=== PATIENT | female | born 1965 | race African-American/Black ===

== ENCOUNTER 2019-02-24 17:28 | Emergency (ER) | payer MEDICARE, MEDICAID ==
[~2019-02-24] VITALS: Ht 165.1 cm; Wt 72.6 kg
--- NOTE | 2019-02-24 17:30 | NUR ---
ED Nurse Note: Patient was brought in by ambulance from [facility], patient is Dr. Partha Smiley's patient, Dr. Doll on the case, her recent blood work at her pmd was abnormal, patient is here to get bone biopsy. patient is alert awake x2 ambulatory with assistance, breathing unlabored and even, speaking in full sentences, patient is derilious and confused, stating that "I'm getting attacked by satan in a horror film." Dr. Hood at bedside.
[2019-02-24] MEDS ORDERED: RISPERDAL2 MG ORAL (17:41)
[2019-02-24] MEDS ORDERED: DEPAKOTE ER500 MG ORAL (17:41)
[2019-02-24] MEDS ORDERED: FERROUS SULFAT325 MG ORAL (17:41)
[2019-02-24] MEDS ORDERED: KEPPRA750 MG ORAL (17:41)
--- NOTE | 2019-02-24 17:41 | Emergency Room Report ---
History of Present Illness General Chief Complaint: General Complaint Source: Patient Present Illness HPI Disclaimer: Please note that this report is being documented using SnowshoefoodON technology. This can lead to erroneous entry secondary to incorrect interpretation by the dictating instrument. HPI: 53-year-old female with a history of schizophrenia (reported baseline AO x1 ) sent to the emergency department by oncologist Dr. Doll for admission bone marrow biopsy. The patient is currently being worked up between multiple myeloma and MGUS. She cannot provide any medical history. She is oriented to herself and place. She denies any acute complaints at this time. Her thoughts are extremely tangential and cannot hold a conversation regarding her past or current medical history. PMH: Schizophrenia PSH: Unknown Allergies: Unknown Social Hx: Unknown Allergies: Coded Allergies: No Known Allergies (Unverified , 02/24/19) Nursing Documentation-PMH Hx COPD: Yes Hx Gastrointestinal Problems: Yes - GERD History Of Psychiatric Problem: Yes - depression schizophrenia Hx Seizures: Yes Review of Systems All Other Systems: limited - Unable to obtain due to patient's clinical condition Physical Exam Vital Signs Date Time Temp Pulse Resp B/P (MAP) Pulse Ox O2 Delivery O2 Flow Rate FiO2 02/24/19 17:24 98.1 80 18 117/69 (85) 94 Room Air General: Awake and alert, no acute distress, pleasant HEENT: NC/AT. EOMI. pupils are 6 mm and reactive bilaterally. Moist mucous membranes. Cardiovascular: RRR. S1 and S2 normal. No murmur appreciated Resp: Normal work of breathing. No cough, wheezing or crackles appreciated Abdomen: Abdomen is soft, nondistended. Obese abdomen. Nontender Skin: Intact. No abrasions, laceration or rash over the exposed skin MSK: Normal tone and bulk. Moving all extremities. No obvious deformity. Neuro: Awake and alert. Mentating appropriately. Medical Decision Making Diagnostic Impression: Primary Impression: Routine lab draw Additional Impression: Routine general medical examination at health care facility ER Course 53-year-old female with history of schizophrenia currently undergoing evaluation for multiple myeloma versus MGUS presents for evaluation and medical admission in preparation for bone marrow biopsy. Will obtain screening labs and admit to medical service. She is in no acute distress, pleasant and cooperative. Arrives with vital signs within normal limits Laboratory Tests Test 02/24/19 17:45 White Blood Count 6.9 K/UL (4.8-10.8) Red Blood Count 3.70 M/UL (4.20-5.40) L Hemoglobin 10.9 G/DL (12.0-16.0) L Hematocrit 33.0 % (37.0-47.0) L Mean Corpuscular Volume 89 FL (80-99) Mean Corpuscular Hemoglobin 29.5 PG (27.0-31.0) Mean Corpuscular Hemoglobin Concent 33.1 G/DL (32.0-36.0) Red Cell Distribution Width 10.9 % (11.6-14.8) L Platelet Count 209 K/UL (150-450) Mean Platelet Volume 7.6 FL (6.5-10.1) Neutrophils (%) (Auto) 58.1 % (45.0-75.0) Lymphocytes (%) (Auto) 30.1 % (20.0-45.0) Monocytes (%) (Auto) 9.0 % (1.0-10.0) Eosinophils (%) (Auto) 1.8 % (0.0-3.0) Basophils (%) (Auto) 1.0 % (0.0-2.0) Prothrombin Time 10.0 SEC (9.30-11.50) Prothrombin Time INR 0.9 (0.9-1.1) PTT 24 SEC (23-33) Sodium Level 140 MMOL/L (136-145) Potassium Level 4.5 MMOL/L (3.5-5.1) Chloride Level 105 MMOL/L (98-107) Carbon Dioxide Level 28 MMOL/L (21-32) Anion Gap 7 mmol/L (5-15) Blood Urea Nitrogen 17 mg/dL (7-18) Creatinine 0.8 MG/DL (0.55-1.30) Estimate Glomerular Filtration Rate > 60 mL/min (>60) Glucose Level 103 MG/DL (74-106) Calcium Level 8.9 MG/DL (8.5-10.1) Phosphorus Level 3.7 MG/DL (2.5-4.9) Magnesium Level 1.8 MG/DL (1.8-2.4) Total Bilirubin 0.3 MG/DL (0.2-1.0) Aspartate Amino Transferase (AST) 11 U/L (15-37) L Alanine Aminotransferase (ALT) 14 U/L (12-78) Alkaline Phosphatase 67 U/L (46-116) Total Protein 8.0 G/DL (6.4-8.2) Albumin 3.2 G/DL (3.4-5.0) L Globulin 4.8 g/dL Albumin/Globulin Ratio 0.7 (1.0-2.7) L Reevaluation Time: 18:37 Last Vital Signs Date Time Temp Pulse Resp B/P (MAP) Pulse Ox O2 Delivery O2 Flow Rate FiO2 02/24/19 17:24 98.1 80 18 117/69 (85) 94 Room Air Reevaluation Impression Patient's blood work has returned largely within normal limits. Unfortunately, due to an insurance issue she will not be admitted to the hospital for biopsy today. I discussed with her oncologist, Dr. Doll, who agrees and will arrange outpatient follow-up shortly. She will be returned to her facility to follow-up as an outpatient. We will arrange transport for her to return to her nursing facility. Condition: Stable Jordon Hood MD Feb 24, 2019 17:41
[2019-02-24 17:55] VITALS: BP 114/61
[2019-02-24 18:02] LABS: EOSINOPHILS % (AUTO) 1.8 % (0.0-3.0); HEMOGLOBIN 10.9 G/DL (12.0-16.0); LYMPHOCYTES % (AUTO) 30.1 % (20.0-45.0); MEAN CORPUSCULAR VOLUME 89 FL (80-99); NEUTROPHILS % (AUTO) 58.1 % (45.0-75.0); PLATELET COUNT 209 K/UL (150-450); RED CELL DISTRIBUTION WIDTH 10.9 % (11.6-14.8); WHITE BLOOD COUNT 6.9 K/UL (4.8-10.8)
[2019-02-24 18:13] LABS: ANION GAP 7 mmol/L (5-15); BLOOD UREA NITROGEN 17 mg/dL (7-18); CALCIUM 8.9 MG/DL (8.5-10.1); CARBON DIOXIDE 28 MMOL/L (21-32); CHLORIDE 105 MMOL/L (98-107); CREATININE 0.8 MG/DL (0.55-1.30); INR 0.9 (0.9-1.1); POTASSIUM 4.5 MMOL/L (3.5-5.1); SODIUM 140 MMOL/L (136-145)
[2019-02-24 18:18] LABS: ALANINE AMINOTRANSFERASE 14 U/L (12-78); ALBUMIN 3.2 G/DL (3.4-5.0); ALBUMIN/GLOBULIN RATIO 0.7 (1.0-2.7); ALKALINE PHOSPHATASE 67 U/L (46-116); ASPARTATE AMINO TRANSFERASE 11 U/L (15-37); BILIRUBIN,TOTAL 0.3 MG/DL (0.2-1.0); PHOSPHORUS 3.7 MG/DL (2.5-4.9)
--- NOTE | 2019-02-24 19:19 | NUR ---
HAND-OFF: Report given to Jin Phillips RN endorsed to take out IVaccess before discharging.
--- NOTE | 2019-02-24 19:46 | NUR ---
ED Nurse Note: report given to NADINE Rich from [facility], informed that the patient is returning back to the facility per dr. Doll/Baljit.
--- NOTE | 2019-02-24 19:47 | NUR ---
ED Nurse Note: pt had one BM and void, pt cleaned and changed, skin intact noted, iv d/c. dressing applied.
--- NOTE | 2019-02-25 01:30 | NUR ---
ED Nurse Note: pt cleared to be d/c per ERMD, pt discharge and paper work given to EMS lifeline staff, nursing facility memo steven was informed that the pt is returning back to the facility, and Dr. Doll aware of pt's returning back to facility. care endorsed to ems staff, all belongings sent w/ pt.
[2019-02-25 01:31] VITALS: BP 118/68
== END 2019-02-25 01:31 ==
LOC: EDBD 17:28 → EDBEDREQ 17:47 → EMR 18:02 → CANBEDREQ 20:12 → EMR 02-25 01:31
DX: Z00.00 Encounter for general adult medical examination without abnormal findings (principal); J44.9 Chronic obstructive pulmonary disease, unspecified; K21.9 Gastro-esophageal reflux disease without esophagitis; R56.9 Unspecified convulsions; F32.89 Other specified depressive episodes
CPT/HCPCS: 36415; 80053; 83735; 84100; 85025; 85610; 85730; 87081; 99283

== ENCOUNTER 2020-02-18 17:58 | Inpatient (IN) | payer MEDICARE, MEDICAID ==
[~2020-02-18] VITALS: Ht 165.1 cm; Wt 93.3 kg
[~2020-02-18 17:58] MED LIST: DEPAKOTE ER500 MG ORAL; FERROUS SULFAT325 MG ORAL; KEPPRA750 MG ORAL; RISPERDAL2 MG ORAL
[2020-02-18] MEDS ORDERED: FERROUS SULFAT325 MG ORAL (18:04)
[2020-02-18] MEDS ORDERED: FLUPHENAZIN5 MG/1 ML IM (18:04)
[2020-02-18] MEDS ORDERED: RISPERDAL2 MG ORAL (18:04)
[2020-02-18] MEDS ORDERED: KEPPRA500 MG ORAL (18:04)
[2020-02-18] MEDS ORDERED: DEPAKOTE ER500 MG ORAL (18:04)
[2020-02-18] MEDS ORDERED: MULTIVITAMINS1 EAC8 ORAL (18:04)
[2020-02-18] MEDS ORDERED: TRUSOPT10 ML BOTH EYES (18:04)
[2020-02-18 18:06] VITALS: BP 118/74
--- NOTE | 2020-02-18 18:10 | NUR ---
ED Nurse Note: Patient was brought in by guardian viral [address] [facility] to have bone marrow biopsy. Patient presented anxious, AAO x1, BP 205/113, other VSS at this time.
--- NOTE | 2020-02-18 18:15 | NUR ---
ED Nurse Note: IV line was established on right AC 20ga, blood collected sent to lab.
--- NOTE | 2020-02-18 18:42 | Emergency Room Report ---
History of Present Illness General Chief Complaint: General Complaint Source: Patient, Medical Record, EMS Present Illness HPI Patient is a 54-year-old female sent in from facility for evaluation and possible bone marrow biopsy. Patient had prior history of schizophrenia. Prior history of encephalopathy as well as COPD as well as anemia. Had previously been taking iron as well as Keppra for seizures patient is a conserved and full code. Had previous abnormal laboratory testing. Had elevated beta-2 microglobulin as well as elevated IgG reports having some lesion to her left breast. Previous history of COVID-19 and seizures. 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 COVID-19 Screening: Negative COVID-19 COVID-19 Testing Source: [facility] Patient History Last Menstrual Period: NA Reviewed Nursing Documentation: PMH: Agreed; PSxH: Agreed Nursing Documentation-PMH Hx Cardiac Problems: Yes - anemia, a-fib, Hx COPD: Yes Hx Gastrointestinal Problems: Yes - GERD History Of Psychiatric Problem: Yes - depression,psychosis, Hx Seizures: Yes - seizure, encephalopathy Review of Systems All Other Systems: negative except mentioned in HPI Physical Exam Vital Signs Date Time Temp Pulse Resp B/P (MAP) Pulse Ox O2 Delivery O2 Flow Rate FiO2 02/18/20 17:55 97.5 96 17 118/74 (89) 97 Room Air Sp02 EP Interpretation: reviewed, normal General Appearance: normal inspection, alert, GCS 15, Chronically Ill Head: atraumatic ENT: normal ENT inspection, hearing grossly normal, normal voice Neck: normal inspection, full range of motion, supple, no bony tend Respiratory: normal inspection, lungs clear, normal breath sounds, no respiratory distress, no retraction, no wheezing Cardiovascular #1: regular rate, rhythm, no edema Gastrointestinal: normal inspection, normal bowel sounds, non tender, soft, no guarding, no hernia Genitourinary: no CVA tenderness Musculoskeletal: normal inspection, back normal, normal range of motion Neurologic: alert, motor strength/tone normal, responsive, speech normal, normal inspection, other - Bilateral upper extremity pill-rolling tremor Psychiatric: mood/affect normal, other - Some delusions Medical Decision Making Diagnostic Impression: Primary Impression: Abnormal laboratory test Additional Impression: Gammopathy ER Course Patient presented for possible biopsy. Had previous abnormal laboratory testing. Differential diagnosis include was not limited to leukemia, gammaglobulinopathy medication reaction among others. Because of complexity of patient's case laboratory tests and imaging studies were ordered. Patient will require further work-up. Patient be admitted to hospital for further evaluation and treatment of abnormal laboratory testing. Patient was noted to have a conservator and attempts made to contact conservator. Dr. Partha Smiley was contacted for inpatient management due to covering physician for Dr. Doll. Last Vital Signs Date Time Temp Pulse Resp B/P (MAP) Pulse Ox O2 Delivery O2 Flow Rate FiO2 02/18/20 18:06 96 17 Room Air 02/18/20 18:06 97.5 118/74 97 Status: unchanged Disposition: ADMITTED INPATIENT Condition: Stable Referrals: NON PHYSICIAN (PCP) Cristino Ramsey MD Feb 18, 2020 18:42
[2020-02-18] MEDS ORDERED: levETIRAcetam 1,000mg/NS100ml 100 ML IVPB ONE (19:00)
[2020-02-18 19:08] LABS: BASOPHILS % (AUTO) 1.4 % (0.0-2.0); EOSINOPHILS % (AUTO) 1.8 % (0.0-3.0); HEMATOCRIT 39.3 % (37.0-47.0); HEMOGLOBIN 12.6 G/DL (12.0-16.0); LYMPHOCYTES % (AUTO) 35.3 % (20.0-45.0); MEAN CORPUSCULAR VOLUME 101 FL (80-99); MONOCYTES % (AUTO) 13.7 % (1.0-10.0); NEUTROPHILS % (AUTO) 47.8 % (45.0-75.0); PLATELET COUNT 167 K/UL (150-450); RED BLOOD COUNT 3.89 M/UL (4.20-5.40); RED CELL DISTRIBUTION WIDTH 12.6 % (11.6-14.8); WHITE BLOOD COUNT 6.1 K/UL (4.8-10.8)
--- NOTE | 2020-02-18 19:12 | NUR ---
HAND-OFF: Report given to NADINE NEIL.
[2020-02-18 19:31] LABS: ALANINE AMINOTRANSFERASE 26 U/L (12-78); ALBUMIN 2.8 G/DL (3.4-5.0); ALBUMIN/GLOBULIN RATIO 0.6 (1.0-2.7); ALKALINE PHOSPHATASE 66 U/L (46-116); ANION GAP 6 mmol/L (5-15); ASPARTATE AMINO TRANSFERASE 35 U/L (15-37); BILIRUBIN,TOTAL 0.3 MG/DL (0.2-1.0); BLOOD UREA NITROGEN 17 mg/dL (7-18); CALCIUM 8.7 MG/DL (8.5-10.1); CARBON DIOXIDE 31 MMOL/L (21-32); CHLORIDE 104 MMOL/L (98-107); CREATININE 0.9 MG/DL (0.55-1.30); POTASSIUM 3.9 MMOL/L (3.5-5.1); SODIUM 140 MMOL/L (136-145)
[2020-02-18 21:00] VITALS: BP 121/78
--- NOTE | 2020-02-18 22:05 | NUR ---
TRANSFER TO FLOOR: Patient transferred to as ordered, per Dr Smiley. Report given to NADINE Ham. Belongings and medications given to . Family and or S/O informed of transfer.
[2020-02-18 22:10] VITALS: BP 149/91
[2020-02-18] MEDS ORDERED: Zolpidem 5mg tab ORAL PRN (22:30)
[2020-02-18] MEDS ORDERED: Morphine Sulfate 2mg/ml Inj(IV/IM USE ONLY) IVP PRN (22:30)
[2020-02-18] MEDS ORDERED: traMADol 50mg tab ORAL PRN (22:30)
--- NOTE | 2020-02-18 22:45 | NUR ---
NURSE NOTES: Patient admitted to the floor from ER. Patient alert x2 on room air with no signs of distress or SOB. VSS. Trembling noted in bilateral hands. IV, Right AC 20g, patent and intact. Belongings accounted for. Redness/skin breakdown noted in the bilateral breast folds, otherwise skin is intact. Incontinent x2; will place purewick for skin protection. Bedbound. Optifoam on sacrum/heels for protection. Side rails up x3, padded for seizure precautions. Bed locked and in lowest position. Bed alarm on. Call light in reach. Orders received from Dr. Doll. Will follow plan of care.
[2020-02-19] VITALS: BP 137/78
[2020-02-19] MEDS: Depakote ER 500mg tab ORAL SCH ×4 (00:42→21:00)
[2020-02-19 04:00] VITALS: BP 137/82
[2020-02-19 06:39] LABS: BASOPHILS % (AUTO) 2.3 % (0.0-2.0); EOSINOPHILS % (AUTO) 1.6 % (0.0-3.0); HEMOGLOBIN 10.9 G/DL (12.0-16.0); LYMPHOCYTES % (AUTO) 32.4 % (20.0-45.0); MEAN CORPUSCULAR VOLUME 98 FL (80-99); MONOCYTES % (AUTO) 12.8 % (1.0-10.0); NEUTROPHILS % (AUTO) 50.9 % (45.0-75.0); PLATELET COUNT 142 K/UL (150-450); RED BLOOD COUNT 3.36 M/UL (4.20-5.40); RED CELL DISTRIBUTION WIDTH 12.8 % (11.6-14.8); WHITE BLOOD COUNT 6.3 K/UL (4.8-10.8)
[2020-02-19 06:43] LABS: ANION GAP 3 mmol/L (5-15); BLOOD UREA NITROGEN 17 mg/dL (7-18); CALCIUM 8.2 MG/DL (8.5-10.1); CARBON DIOXIDE 30 MMOL/L (21-32); CHLORIDE 104 MMOL/L (98-107); CREATININE 0.9 MG/DL (0.55-1.30); SODIUM 137 MMOL/L (136-145)
--- NOTE | 2020-02-19 07:18 | NUR ---
NURSE NOTES: Report received from Fatoumata MCCOY, rounds made. Patient resting, AOx1, calm in semi-fowlers position, in bed. Respirations even/unlabored on RA. Notable mild tremor to upper extremities. Seizure precautions (side rails padded). IV (NS at 70 ml/ hr) infusing to RAC, site asymptomatic. Optifoam to bilateral heels/sacrum. Purewik in place. Skin precautions, will reposition Q2H and provide skin care. Call light in reach, bed in lowest position, will continue to monitor.
--- NOTE | 2020-02-19 07:38 | NUR ---
NURSE HAND-OFF: Important Events on Shift: Admission Patient Status: Stable Diet: Reg Pending Orders: N/A Pending Results/Labs: CBC, BMP Pending MD notification: N/A Latest Vital Signs: Temperature 98.1 , Pulse 77 , B/P 137 /82 , Respiratory Rate 18 , O2 SAT 98 , Room Air, O2 Flow Rate . Vital Sign Comment: N/A Latest Rikcs Fall Score: 70 Fall Risk: High Risk Safety Measures: Call light Within Reach, Bed Alarm Zone 1, Side Rails Side Rails x3, Bed position Low and Locked. Fall Precautions: Yellow Socks Yellow Gown Patient Fall Education Report given to NADINE Arizmendi.
--- NOTE | 2020-02-19 07:49 | NUR ---
NURSE NOTES: Reconciled all home medications and AM labs with Dr. Love during rounds at bedside. Okay for Heparin (Platelets 142). Orders to resume all home medications, troponin level this AM and Ambien 5 mg PO QHS, will follow as ordered.
[2020-02-19 08:00] VITALS: BP 157/88
[2020-02-19] MEDS ORDERED: Zolpidem 5mg tab ORAL PRN (08:15)
[2020-02-19] MEDS ORDERED: Depakote 500mg tab ORAL SCH (09:00)
[2020-02-19] MEDS ORDERED: Dorzolamide 2% 10ml Btl BOTH EYES SCH (09:00)
[2020-02-19] MEDS: Heparin 5000 units/ml inj SUBQ SCH ×2 (09:02→20:55)
[2020-02-19] MEDS: Dorzolamide 2% 10ml Btl BOTH EYES SCH ×3 (09:03→18:28)
--- NOTE | 2020-02-19 10:01 | Consultation ---
History of Present Illness General Chief Complaint: General Complaint Present Illness Allergies: Coded Allergies: No Known Allergies (Unverified , 02/24/19) Medication History Scheduled Divalproex Sodium* (Depakote Er*), 2,000 MG ORAL QHS, (Reported) Divalproex Sodium* (Depakote Er*), 1,000 MG ORAL EVERY 12 HOURS, (Reported) Dorzolamide Hcl* (Trusopt*), 1 DROP BOTH EYES TID, (Reported) Ferrous Sulfate* (Ferrous Sulfate*), 325 MG ORAL DAILY, (Reported) Ferrous Sulfate* (Ferrous Sulfate*), 325 MG ORAL DAILY, (Reported) Levetiracetam (Keppra), 750 MG ORAL TID, (Reported) Levetiracetam (Keppra), 750 MG ORAL TID, (Reported) Multivitamin With Minerals (Multivitamins With Minerals*), 1 TAB ORAL DAILY, (Reported) Risperidone* (Risperdal*), 4 MG ORAL BID, (Reported) Risperidone* (Risperdal*), 4 MG ORAL BID, (Reported) Miscellaneous Medications Fluphenazine Hcl (Fluphenazine Hcl*), 100 MG IM, (Reported) Patient History Healthcare decision maker Resuscitation status Advanced Directive on File Physical Exam Last 24 Hour Vital Signs Date Time Temp Pulse Resp B/P (MAP) Pulse Ox O2 Delivery O2 Flow Rate FiO2 02/19/20 08:00 98.6 83 18 157/88 (111) 95 02/19/20 04:00 98.1 77 18 137/82 (100) 98 02/19/20 00:00 97.7 91 19 137/78 (97) 96 02/18/20 22:49 Room Air 02/18/20 22:10 98.2 95 18 149/91 (110) 95 02/18/20 22:05 97.5 75 18 130/70 99 Room Air 02/18/20 21:00 98.0 72 18 121/78 98 Room Air 02/18/20 18:06 96 17 Room Air 02/18/20 18:06 97.5 17 118/74 97 Room Air 02/18/20 17:55 97.5 96 17 118/74 (89) 97 Room Air Intake and Output 02/18/20 02/19/20 19:00 07:00 Intake Total 480 ml Balance 480 ml Intake Oral 480 ml # Voids 1 2 Laboratory Tests Test 02/18/20 18:50 02/19/20 04:45 White Blood Count 6.1 K/UL (4.8-10.8) 6.3 K/UL (4.8-10.8) Red Blood Count 3.89 M/UL (4.20-5.40) L 3.36 M/UL (4.20-5.40) L Hemoglobin 12.6 G/DL (12.0-16.0) 10.9 G/DL (12.0-16.0) L Hematocrit 39.3 % (37.0-47.0) 33.0 % (37.0-47.0) L Mean Corpuscular Volume 101 FL (80-99) H 98 FL (80-99) Mean Corpuscular Hemoglobin 32.3 PG (27.0-31.0) H 32.4 PG (27.0-31.0) H Mean Corpuscular Hemoglobin Concent 32.0 G/DL (32.0-36.0) 33.0 G/DL (32.0-36.0) Red Cell Distribution Width 12.6 % (11.6-14.8) 12.8 % (11.6-14.8) Platelet Count 167 K/UL (150-450) 142 K/UL (150-450) L Mean Platelet Volume 7.3 FL (6.5-10.1) 7.4 FL (6.5-10.1) Neutrophils (%) (Auto) 47.8 % (45.0-75.0) 50.9 % (45.0-75.0) Lymphocytes (%) (Auto) 35.3 % (20.0-45.0) 32.4 % (20.0-45.0) Monocytes (%) (Auto) 13.7 % (1.0-10.0) H 12.8 % (1.0-10.0) H Eosinophils (%) (Auto) 1.8 % (0.0-3.0) 1.6 % (0.0-3.0) Basophils (%) (Auto) 1.4 % (0.0-2.0) 2.3 % (0.0-2.0) H Prothrombin Time 10.9 SEC (9.30-11.50) Prothromb Time International Ratio 1.0 (0.9-1.1) Activated Partial Thromboplast Time 24 SEC (23-33) Sodium Level 140 MMOL/L (136-145) 137 MMOL/L (136-145) Potassium Level 3.9 MMOL/L (3.5-5.1) 4.0 MMOL/L (3.5-5.1) Chloride Level 104 MMOL/L (98-107) 104 MMOL/L (98-107) Carbon Dioxide Level 31 MMOL/L (21-32) 30 MMOL/L (21-32) Anion Gap 6 mmol/L (5-15) 3 mmol/L (5-15) L Blood Urea Nitrogen 17 mg/dL (7-18) 17 mg/dL (7-18) Creatinine 0.9 MG/DL (0.55-1.30) 0.9 MG/DL (0.55-1.30) Estimat Glomerular Filtration Rate > 60 mL/min (>60) > 60 mL/min (>60) Glucose Level 100 MG/DL (74-106) 80 MG/DL (74-106) Calcium Level 8.7 MG/DL (8.5-10.1) 8.2 MG/DL (8.5-10.1) L Total Bilirubin 0.3 MG/DL (0.2-1.0) Aspartate Amino Transf (AST/SGOT) 35 U/L (15-37) Alanine Aminotransferase (ALT/SGPT) 26 U/L (12-78) Alkaline Phosphatase 66 U/L (46-116) Troponin I 0.121 ng/mL (0.000-0.056) 0.103 ng/mL (0.000-0.056) Pro-B-Type Natriuretic Peptide 229 pg/mL (0-125) H Total Protein 7.7 G/DL (6.4-8.2) Albumin 2.8 G/DL (3.4-5.0) L Globulin 4.9 g/dL Albumin/Globulin Ratio 0.6 (1.0-2.7) L Lipase 164 U/L (73-393) Valproic Acid (Depakene) Level 78 MCG/ML (50-100) Height (Feet): 5 Height (Inches): 5.00 Weight (Pounds): 205 Medications Current Medications Medications (Trade) Dose Ordered Sig/Lisha Route PRN Reason Start Time Stop Time Status Last Admin Dose Admin Acetaminophen (Tylenol) 650 mg Q6HR PRN ORAL Mild Pain/Fever 101.0 02/18/20 22:30 03/19/20 22:29 Divalproex Sodium (Depakote ER) 1,000 mg EVERY 12 HOURS ORAL 02/19/20 00:00 03/20/20 00:00 02/19/20 09:03 Dorzolamide HCl (Trusopt) 1 drop TID BOTH EYES 02/19/20 09:00 03/20/20 08:59 02/19/20 09:03 Ferrous Sulfate (Feosol) 325 mg DAILY ORAL 02/19/20 09:00 05/19/20 08:59 02/19/20 09:02 Heparin Sodium (Porcine) (Heparin 5000 units/ml) 5,000 units EVERY 12 HOURS SUBQ 02/19/20 09:00 04/04/20 08:59 02/19/20 09:02 Levetiracetam (Keppra) 750 mg TID ORAL 02/19/20 09:00 03/20/20 08:59 Morphine Sulfate (Morphine Sulfate) 1 mg Q8HR PRN IVP Moderate Pain (Pain Scale 4-6) 02/18/20 22:30 02/25/20 22:29 Multivitamins (Multivitamins) 1 tab DAILY ORAL 02/19/20 09:00 03/20/20 08:59 02/19/20 09:03 Ondansetron HCl (Zofran) 4 mg Q6H PRN IVP Nausea & Vomiting 02/18/20 22:30 03/19/20 22:29 Risperidone (RisperDAL) 4 mg BID ORAL 02/19/20 09:00 04/04/20 08:59 02/19/20 09:03 Sodium Chloride 1,000 ml @ 70 mls/hr [id number] IV 02/18/20 22:30 03/19/20 22:29 02/18/20 23:30 Tramadol HCl (Ultram) 50 mg Q8HR PRN ORAL Severe Pain (Pain Scale 7-10) 02/18/20 22:30 02/25/20 22:29 Zolpidem Tartrate (Ambien) 5 mg HSPRN PRN ORAL Insomnia 02/18/20 22:30 02/25/20 22:29 Assessment/Plan Assessment/Plan: Hematology Consultation REQ MD: Delvin Smiley RFC: Monoclonal gammopathy DOS: HPI Patient is a 54-year-old female sent in from facility for evaluation and pos sible bone marrow biopsy. Patient had prior history of schizophrenia. Prior history of encephalopathy as well as COPD as well as anemia. Had previously been taking iron as well as Keppra for seizures patient is a conserved and full code. Had previous abnormal laboratory testing. Had elevated beta-2 microglobulin as well as elevated IgG reports having some lesion to her left júnior ast. Previous history of COVID-19 and seizures. 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 Patient History Last Menstrual Period: NA Reviewed Nursing Documentation: PMH: Agreed; PSxH: Agreed Nursing Documentation-PMH Hx Cardiac Problems: Yes - anemia, a-fib, Hx COPD: Yes Hx Gastrointestinal Problems: Yes - GERD History Of Psychiatric Problem: Yes - depression,psychosis, Hx Seizures: Yes - seizure, encephalopathy Review of Systems negative except mentioned in HPI Physical Exam Vitals: reviewed, normal General: normal inspection, alert, GCS 15, Chronically Ill Head: atraumatic, normal rom Resp: normal inspection, lungs clear, normal breath sounds Cardiovascular: regular rate, rhythm, no edema Gi: normal inspection, normal bowel sounds, non tender, soft, no guarding, no hernia Gu: no CVA tenderness Msk: normal inspection, back normal, normal range of motion Neurologic: bilateral upper extremity pill-rolling tremor Psychiatric: mood/affect normal, other - Some delusions Labs: reviewed Imaging: noted Assessment and Recs # Monoclonal gammopathy -- elevated IGG >3000 --> will order spep and igg, igm, iga --> will dw path for potential bone marrow biopsy --> smear has been ordered as well --> will follow w/u # Anemia due to chronic disease --> anemia panel to order --> transfuse as needed --> also low plts --> hgb 10 # Elevated trop --> per cards, downtrending # Schizphrenia --> per psych # Dvt ppx scds Appreciate consultation and dw RN Tobin Doll MD Feb 19, 2020 10:01
--- NOTE | 2020-02-19 10:40 | NUR ---
NURSE NOTES: Dr. Love and Dr. Smiley notified of Troponin level from this AM, (0.103), order for Dr. Cano to consult, ordered added, notified Dr. Cano of consult order and patient current status.
--- NOTE | 2020-02-19 11:10 | NUR ---
NURSE NOTES: Wound nurse evaluation done: Skin care provided (patient incontinent of urine), skin folds of bilateral breast cleansed, pat dry, applied antifungal cream. Bilateral heels, assessed, skin CDI, new optifoams applied. Mami area cleansed, pat dry, sacral stage 2 in between buttocks, Triad cream applied with new optifoam. Will discuss with Dr. Tucker for FC, due to LeWa Tek not working. PT evaluation to be done today. Will continue to monitor.
[2020-02-19 11:37] VITALS: BP 143/69
--- NOTE | 2020-02-19 11:52 | Cardiac Electrophysiology PN ---
Subjective Subjective [id number] Objective Last 24 Hour Vital Signs Date Time Temp Pulse Resp B/P (MAP) Pulse Ox O2 Delivery O2 Flow Rate FiO2 02/19/20 11:37 98.1 65 16 143/69 (93) 95 02/19/20 08:00 98.6 83 18 157/88 (111) 95 02/19/20 04:00 98.1 77 18 137/82 (100) 98 02/19/20 00:00 97.7 91 19 137/78 (97) 96 02/18/20 22:49 Room Air 02/18/20 22:10 98.2 95 18 149/91 (110) 95 02/18/20 22:05 97.5 75 18 130/70 99 Room Air 02/18/20 21:00 98.0 72 18 121/78 98 Room Air 02/18/20 18:06 96 17 Room Air 02/18/20 18:06 97.5 17 118/74 97 Room Air 02/18/20 17:55 97.5 96 17 118/74 (89) 97 Room Air Intake and Output 02/18/20 02/19/20 19:00 07:00 Intake Total 480 ml Balance 480 ml Intake Oral 480 ml # Voids 1 2 Laboratory Tests Test 02/18/20 18:50 02/19/20 04:45 White Blood Count 6.1 K/UL (4.8-10.8) 6.3 K/UL (4.8-10.8) Red Blood Count 3.89 M/UL (4.20-5.40) L 3.36 M/UL (4.20-5.40) L Hemoglobin 12.6 G/DL (12.0-16.0) 10.9 G/DL (12.0-16.0) L Hematocrit 39.3 % (37.0-47.0) 33.0 % (37.0-47.0) L Mean Corpuscular Volume 101 FL (80-99) H 98 FL (80-99) Mean Corpuscular Hemoglobin 32.3 PG (27.0-31.0) H 32.4 PG (27.0-31.0) H Mean Corpuscular Hemoglobin Concent 32.0 G/DL (32.0-36.0) 33.0 G/DL (32.0-36.0) Red Cell Distribution Width 12.6 % (11.6-14.8) 12.8 % (11.6-14.8) Platelet Count 167 K/UL (150-450) 142 K/UL (150-450) L Mean Platelet Volume 7.3 FL (6.5-10.1) 7.4 FL (6.5-10.1) Neutrophils (%) (Auto) 47.8 % (45.0-75.0) 50.9 % (45.0-75.0) Lymphocytes (%) (Auto) 35.3 % (20.0-45.0) 32.4 % (20.0-45.0) Monocytes (%) (Auto) 13.7 % (1.0-10.0) H 12.8 % (1.0-10.0) H Eosinophils (%) (Auto) 1.8 % (0.0-3.0) 1.6 % (0.0-3.0) Basophils (%) (Auto) 1.4 % (0.0-2.0) 2.3 % (0.0-2.0) H Prothrombin Time 10.9 SEC (9.30-11.50) Prothromb Time International Ratio 1.0 (0.9-1.1) Activated Partial Thromboplast Time 24 SEC (23-33) Sodium Level 140 MMOL/L (136-145) 137 MMOL/L (136-145) Potassium Level 3.9 MMOL/L (3.5-5.1) 4.0 MMOL/L (3.5-5.1) Chloride Level 104 MMOL/L (98-107) 104 MMOL/L (98-107) Carbon Dioxide Level 31 MMOL/L (21-32) 30 MMOL/L (21-32) Anion Gap 6 mmol/L (5-15) 3 mmol/L (5-15) L Blood Urea Nitrogen 17 mg/dL (7-18) 17 mg/dL (7-18) Creatinine 0.9 MG/DL (0.55-1.30) 0.9 MG/DL (0.55-1.30) Estimat Glomerular Filtration Rate > 60 mL/min (>60) > 60 mL/min (>60) Glucose Level 100 MG/DL (74-106) 80 MG/DL (74-106) Calcium Level 8.7 MG/DL (8.5-10.1) 8.2 MG/DL (8.5-10.1) L Total Bilirubin 0.3 MG/DL (0.2-1.0) Aspartate Amino Transf (AST/SGOT) 35 U/L (15-37) Alanine Aminotransferase (ALT/SGPT) 26 U/L (12-78) Alkaline Phosphatase 66 U/L (46-116) Troponin I 0.121 ng/mL (0.000-0.056) 0.103 ng/mL (0.000-0.056) Pro-B-Type Natriuretic Peptide 229 pg/mL (0-125) H Total Protein 7.7 G/DL (6.4-8.2) Albumin 2.8 G/DL (3.4-5.0) L Globulin 4.9 g/dL Albumin/Globulin Ratio 0.6 (1.0-2.7) L Pending Lipase 164 U/L (73-393) Total Protein (PEP) Pending Albumin (PEP) Pending Globulin (PEP) Pending [id number] Pending [id number] Pending Beta Globulins Pending Beta Gamma Globulin Pending PEP Abnormal Protein Bands Pending Protein Electrophoresis Interpret Pending Valproic Acid (Depakene) Level 78 MCG/ML (50-100) Immunoglobulin G Pending Immunoglobulin A Pending Immunoglobulin M Pending Compa Anthony MD Feb 19, 2020 11:52
--- NOTE | 2020-02-19 12:00 | NUR ---
NURSE NOTES:WOUND ASSESSMENT PATIENT AWAKE AND ALERT. SHE IS ABLE TO ASSIST WITH SOME REPOSTIONING IN BED. RIGHT AND LEFT BREAST FOLDS- REDNESS NOTED TO BOTH AREAS WITH SKIN INTACT. RECOMMEND- APPLY ANTI-FUNGAL CREAM TO BOTH AREAS TWICE A DAY SACRUM- STAGE II PRESSURE ULCER MEASURES 3.0X0.5X0.2CM. NOTED PINK GRANULATION IN WOUND BED WITH NO DRAINAGE. NO DISCOLORATION SEEN TO USMAN-WOUND SKIN. DRY AND INTACT. RECOMMEND- CLEAN WITH SALINE. PAT DRY. APPLY TRIAD AND COVER WITH OPTIFOAM DRESSING. REPLACE DRESSING EVERY OTHER DAY AND OR NEEDED. Addendum: 02/19/20 at 1216 by XUAN CARIAS RN ALSO RECOMMEND- REPOSITION AT LEAST EVERY 2 HOURS OR TOLERATED. ELEVATE HEELS WITH PILLOWS
--- NOTE | 2020-02-19 12:03 | NUR ---
NURSE NOTES: STAT ECG done, results reported to Dr. Cano, no further orders.
--- NOTE | 2020-02-19 12:05 | NUR ---
NURSE NOTES: Limon catheter 16 FR, inserted at this time, y/cl urine draining to gravity, anchor applied to left thigh.
--- NOTE | 2020-02-19 12:23 | NUR ---
NURSE NOTES: Patient transferred to [facility] via bed on RA, in stable condition. All belongings and IV sent with patient. Patient remains safe. Addendum: 02/19/20 at 1334 by Kyleigh Fuller RN Report given to Bridget MCCOY. Endorsed that patient has order for Bone Marrow Biopsy/Aspiration to be done in Radiology, (consent is still needed), and home medication Fluphenazine needs clarification on dose/route/frequency.
--- NOTE | 2020-02-19 12:24 | NUR ---
NURSE NOTES: Pt received from Regina MCCOY. Pt awake and alert but disoriented. does not follow commands. eyes tracking. Tele monitor placed. Vitals taken 136/58, 98% on RA, 83bpm, 100.0. Bed low and locked. Call light placed in reach .IV running NS at 70cc in right AC. No complaint of chest pain, no grimacing, no guarding. Tremors noted to bilateral upper arms. Pt is complaining about miller catheter however it is running and no sign of irritation at urethra. Pt resistive to care. Inappropriate speech.
--- NOTE | 2020-02-19 13:24 | NUR ---
P.T NOTE: Pt evaluation completed and tx initiated. Please refer to P.T evaluation for current functional status.
--- NOTE | 2020-02-19 13:30 | History and Physical Report ---
DATE OF ADMISSION: 02/18/2020 DATE AND TIME SEEN: 02/19/2020 at 10 a.m. CONSULTANTS: 1. Bradley Perales MD. 2. Yonis Escalante MD. 3. Dr. Doll. 4. Dr. Schmidt. CHIEF COMPLAINT: Weakness, myeloma, schizophrenia. BRIEF HISTORY: This is a 54-year-old female from [facility], presents with increased weakness, sent by Dr. Doll for possible bone marrow biopsy. Currently, calm, confused in bed, not talking much. REVIEW OF SYSTEMS: Unavailable. PAST MEDICAL HISTORY: Includes general weakness, schizophrenia, seizures. PAST SURGICAL HISTORY: Unknown. ALLERGIES: Denies. MEDICATIONS: Include risperidone, levetiracetam, ferrous sulfate, dorzolamide, multivitamin, zolpidem, tramadol. SOCIAL HISTORY: Unable to obtain secondary to the patient condition. PHYSICAL EXAMINATION: GENERAL: Confused in bed, not talking much. VITAL SIGNS: Temperature 98 degrees, pulse 83, respirations 18, blood pressure 157/88. CARDIOVASCULAR: No murmur. LUNGS: Distant and clear. ABDOMEN: Positive bowel sounds. Soft, nontender, nondistended. EXTREMITIES: No cyanosis or edema. NEUROLOGIC: The patient moves all extremities, slightly weak. Slight tremor in bilateral upper extremities. LABORATORY AND DIAGNOSTIC DATA: Labs at this time show hemoglobin and hematocrit 10.9/33, platelets 142,000. BMP shows calcium 8.2. Troponin elevated 0.103. Albumin 2.8. INR is 1.0. ASSESSMENT: 1. Myeloma 2. General weakness. 3. Pending bone marrow biopsy. 4. Elevated troponin. 5. Schizophrenia. 6. Anemia. 7. Weakness. 8. Tremor. 9. Malnutrition. PLAN: 1. PT, OT, and dietary followup. 2. Blood pressure, seizure, pain control. 3. CBC and BMP in the morning. 4. We will add Cardiology, Dr. Anthony for evaluation. Partha Smiley D.O. DR: BETSEY JOB#: [id number] CC:
--- NOTE | 2020-02-19 14:59 | NUR ---
CASE MANAGEMENT:INITIAL REVIEW 54 YR OLD FEMALE BIBA FROM [facility] CC;GENERAL COMPLAINT SI;ABNORMAL LABS. GAMMOPATHY. ELEVATED TROPONIN. 97.5 96 18 149/91 95% ON RA TROP 0.121 BNP 229 ALB 2.8 TYPE & CROSS IS;KEPPRA IV IVF NS ADMITTED TO MED SURG 02/19/20 @ 0449 TRANSFERRED TO TELEMETRY 02/19/20 @ 1150 TELE STATUS DCP;FROM [facility] PLAN; BONE MARROW BIOPSY PT EVAL
--- NOTE | 2020-02-19 15:25 | NUR ---
NURSE NOTES: Informed Dr. Escalante about slightl being resistive to care and refusing medication. Changes made to ceratain PO meds to be IV.
[2020-02-19] MEDS ORDERED: Haloperidol 5mg/ml Inj IM PRN (15:30)
[2020-02-19 16:00] VITALS: BP 136/74
--- NOTE | 2020-02-19 16:06 | NUR ---
FORESTRY TECHNICAL OFFICER NOTE OLAYINKA spoke w/ Vicki from [facility] Office [phone] that pt is conserved by [facility] Collins [phone] and she works from home. OLAYINKA spoke w/ duty worker 6 Diana that the hospital needs to follow their protocol when in emergency.
[2020-02-19] MEDS ORDERED: levETIRAcetam 750 MG in NS 110 ML IV SCH (17:00)
--- NOTE | 2020-02-19 17:30 | Consultation ---
DATE OF CONSULTATION: 02/19/2020 CARDIOLOGY CONSULTATION REFERRING PHYSICIAN: Partha Smiley D.O. REASON FOR CONSULTATION: Elevated troponin and hypertension. HISTORY OF PRESENT ILLNESS: The patient is a 54-year-old lady with history of schizophrenia and seizures, who was transferred from the facility for evaluation and possible bone marrow biopsy. The patient also has history of encephalopathy, COPD, and anemia. The patient is currently conserved and is full code. The patient was evaluated and was noted to have elevated troponin. She has a history of COVID positive in the past. At the time of my evaluation, the patient is alert, but confused. Denies any chest pain or shortness of breath. REVIEW OF SYSTEMS: Negative other than what was mentioned in history of present illness. PAST MEDICAL HISTORY: As mentioned above. FAMILY HISTORY: Noncontributory. SOCIAL HISTORY: retirement resident. Does not smoke or drink alcohol. PHYSICAL EXAMINATION: VITAL SIGNS: Blood pressure of 157/88, pulse is 83, respirations 18, and temperature 98.6. HEAD AND NECK: No JVD. LUNGS: Clear. CARDIOVASCULAR: Regular S1 and S2 with no gallop or murmur. ABDOMEN: Soft. EXTREMITIES: No pitting edema. LABORATORY DATA: Labs show white count of 6.3, hematocrit 10.9, hematocrit 33, and platelet count 142,000. Sodium 137, potassium 4.0, BUN of 17, creatinine 0.9. Troponin is 0.121 and 0.103. Her BNP is 229. ASSESSMENT AND PLAN: 1. Troponin elevation. The patient has 2 elevated troponin and does not have renal failure. Currently, the patient does not have any chest pain. We will get EKG and echocardiogram for further evaluation. Start the patient on aspirin and beta-clover and statin until we have further information. 2. Hypertension. Start the patient on metoprolol 25 mg b.i.d. 3. History of seizures, on Keppra. 4. History of schizophrenia. 5. History of COVID positive in the past. 6. Monoclonal gammopathy with elevated IgG of more than 3000. Further evaluation by Dr. Doll. IgG, IgM, and IgA is pending. The patient potentially may need bone marrow biopsy. Thank you very much for allowing me to participate in the care of this patient. Please do not hesitate to contact me for any questions regarding my evaluation. In the meantime, we will transfer the patient to telemetry in view of elevated troponins. Compa Anthony M.D. DR: TORRIE JOB#: [id number] CC:
--- NOTE | 2020-02-19 18:00 | NUR ---
NURSE NOTES: Informed Dr. Love that pt has public guardian and per marriage and family social worker who called to follow up, they are not able to consent for invasive procedures. Dr. Love says he will get 2p physician consent later.
--- NOTE | 2020-02-19 19:15 | NUR ---
NURSE NOTES: Report received from NADINE Gill. Patient is awake alert and oriented x 1 to 2 periods of confusion. No SOB or distress. Call light in reach. make up editor intact and functioning at sinus rhythm. Bed at lowest position locked with side rails up and bed alarm activated. Sitter at bedside. Bridget Rn made nurse aware that Dr. Hart aware of consent needs to be given by 2 MD for bone marrow biopsy since patient is not able to give consent and no family or public guardian able to consent. Also made nurse aware that Dr. Abraham aware of elevated Troponin. Will continue with plan of care.
--- NOTE | 2020-02-19 19:18 | NUR ---
NURSE HAND-OFF REPORT: Important Events on Shift:[pt transferred here from [facility] for elevated troponin. pt refused po medication. per md's changed orders to IV. ] Patient Status: [in bed awake and talkative] Diet: [regualr] Pending Orders: [] Pending Results/Labs:[] Pending MD notification:[] Latest Vital Signs: Temperature 99.9 , Pulse 58 , B/P 136 /74 , Respiratory Rate 18 , O2 SAT 97 , Room Air, O2 Flow Rate . Vital Sign Comment: [MD aware of low grade fever] EKG Rhythm: Sinus Rhythm Rhythm change?: N MD Notified?: - MD Response: Latest Ricks Fall Score: 60 Fall Risk: High Risk Safety Measures: Call light Within Reach, Bed Alarm Zone 2, Side Rails Side Rails x3, Bed position Low and Locked. Fall Precautions: Yellow Socks Yellow Gown Door Sign Patient Fall Education Report given to [Latonya MCCOY].
[2020-02-19 20:00] VITALS: BP 133/67
[2020-02-19] MEDS ORDERED: levETIRAcetam 1,000mg/NS100ml 100 ML IVPB SCH (21:00)
--- NOTE | 2020-02-19 21:30 | NUR ---
NURSE NOTES: Dr. Doll made aware of patient refusing to take Depakote ER 1000mg PO. Offered medication 3x explained risks and benefits but patient strongly refused. MD stated no new orders.
--- NOTE | 2020-02-19 21:30 | Consultation ---
DATE OF CONSULTATION: 02/19/2020 CONSULTING PHYSICIAN: Yonis Escalante MD HISTORY OF PRESENT ILLNESS: This is a 54-year-old female with a history of schizophrenia, noncompliance, seizure disorder, and weakness who has been admitted to the hospital for weakness and agitation. Patient has been refusing medications. Per nurse when she is administering medication, she is getting agitated and hitting her. She has been refusing her Keppra. Keppra was changed to IV today. She is noncompliant during evaluation. She appears to be confused, illogical, unable to . No suicidal or homicidal ideation. PAST PSYCHIATRIC HISTORY: Significant for schizophrenia, on risperidone 8 mg. No suicide attempt. PAST MEDICAL HISTORY: Significant as above. ALLERGIES: No known drug allergies. SUBSTANCE ABUSE HISTORY: No known history of illicit drug use or alcohol. MENTAL STATUS EXAMINATION: Patient is alert, oriented times self, place. Mood is anxious. Affect is blunted, congruent with mood. Thought process is concrete. Thought content, no suicidal or homicidal ideation. Cognition is intact. Insight and judgment is fair. ASSESSMENT: Stable. PLAN: 1. Continue the current psychotropic medication. 2. Decrease the risperidone to 6 mg at bedtime. 3. Haldol IM as needed. 4. Provide the patient with reality orientation. Yonis Escalante M.D. DR: JULIAN JOB#: [id number] CC:
[2020-02-19] MEDS: levETIRAcetam 750 MG in NS 110 ML IV SCH (21:47)
--- NOTE | 2020-02-19 22:45 | Progress Note ---
DATE: 02/19/2020 NOTE: INCOMPLETE DICTATION This is a 54-year-old female with a history of . Yonis Escalante M.D. DR: LISA JOB#: [id number] CC:
[2020-02-20] VITALS: BP 104/55
[2020-02-20 04:00] VITALS: BP 141/56
[2020-02-20 05:27] LABS: ANION GAP 3 mmol/L (5-15); CALCIUM 8.1 MG/DL (8.5-10.1); CARBON DIOXIDE 29 MMOL/L (21-32); CHLORIDE 109 MMOL/L (98-107); CREATININE 0.9 MG/DL (0.55-1.30); POTASSIUM 4.1 MMOL/L (3.5-5.1); SODIUM 141 MMOL/L (136-145)
[2020-02-20 05:35] LABS: BLOOD UREA NITROGEN 12 mg/dL (7-18)
[2020-02-20] MEDS: levETIRAcetam 750 MG in NS 110 ML IV SCH ×3 (05:55→22:00)
--- NOTE | 2020-02-20 06:00 | NUR ---
NURSE NOTES: Dr. Anthony made aware of patient's troponin level trending up this morning at 0.129. No new orders given at this time.
[2020-02-20 06:24] LABS: BASOPHILS % (AUTO) 1.1 % (0.0-2.0); EOSINOPHILS % (AUTO) 1.6 % (0.0-3.0); HEMATOCRIT 34.2 % (37.0-47.0); HEMOGLOBIN 11.2 G/DL (12.0-16.0); LYMPHOCYTES % (AUTO) 44.2 % (20.0-45.0); MEAN CORPUSCULAR VOLUME 98 FL (80-99); MONOCYTES % (AUTO) 10.8 % (1.0-10.0); NEUTROPHILS % (AUTO) 42.4 % (45.0-75.0); PLATELET COUNT 138 K/UL (150-450); RED BLOOD COUNT 3.49 M/UL (4.20-5.40); RED CELL DISTRIBUTION WIDTH 12.2 % (11.6-14.8); WHITE BLOOD COUNT 5.7 K/UL (4.8-10.8)
--- NOTE | 2020-02-20 07:25 | NUR ---
NURSE HAND-OFF REPORT: Important Events on Shift:Dr. Anthony made aware of Troponin 0.129, no new orders, Dr. Hart made aware of patient's refusal of Depakote ER] Patient Status: [Stable alert and oriented x2] Diet: [Regular] Pending Orders: [] Pending Results/Labs:[] Pending MD notification:[] Latest Vital Signs: Temperature 97.7 , Pulse 60 , B/P 141 /56 , Respiratory Rate 18 , O2 SAT 97 , Room Air, O2 Flow Rate . Vital Sign Comment: [] EKG Rhythm: Sinus Rhythm Rhythm change?: N MD Notified?: - MD Response: Latest Ricks Fall Score: 60 Fall Risk: High Risk Safety Measures: Call light Within Reach, Bed Alarm Zone 2, Side Rails Side Rails x3, Bed position Low and Locked. Fall Precautions: Yellow Socks Yellow Gown Door Sign Patient Fall Education Report given to [NADINE Jimenez].
[2020-02-20 08:00] VITALS: BP 149/65
[2020-02-20] MEDS: Depakote ER 500mg tab ORAL SCH ×2 (08:17→20:53)
[2020-02-20] MEDS: Dorzolamide 2% 10ml Btl BOTH EYES SCH ×3 (08:23→17:37)
--- NOTE | 2020-02-20 08:33 | NUR ---
NURSE NOTES: Contacted Dr Smiley and Kate regarding Heparin administration. Pt plt 138. Ok to give. Per aKte, "Give if platlets >75" order acknowledged and carried out.
[2020-02-20] MEDS: Heparin 5000 units/ml inj SUBQ SCH ×2 (08:41→20:55)
--- NOTE | 2020-02-20 10:17 | General Progress Note ---
Subjective Constitutional: Reports: weakness Allergies: Coded Allergies: No Known Allergies (Unverified , 02/24/19) All Systems: reviewed and negative except above Subjective calm in bed Objective Last 24 Hour Vital Signs Date Time Temp Pulse Resp B/P (MAP) Pulse Ox O2 Delivery O2 Flow Rate FiO2 02/20/20 09:00 Room Air 02/20/20 08:17 84 149/65 02/20/20 08:00 98.9 84 18 149/65 (93) 94 02/20/20 08:00 77 02/20/20 04:00 60 02/20/20 04:00 97.7 60 18 141/56 (84) 97 02/20/20 00:00 71 02/20/20 00:00 98.4 63 16 104/55 (71) 96 02/19/20 21:00 63 133/70 02/19/20 21:00 Room Air 02/19/20 20:00 74 02/19/20 20:00 96.9 63 18 133/67 (89) 95 02/19/20 16:00 99.9 61 18 136/74 (94) 97 02/19/20 16:00 58 02/19/20 12:05 Room Air 02/19/20 11:37 98.1 65 16 143/69 (93) 95 Intake and Output 02/19/20 02/20/20 19:00 07:00 Intake Total 1070 ml 480 ml Output Total 350 ml 1000 ml Balance 720 ml -520 ml Intake Oral 720 ml 480 ml IV Total 350 ml Output Urine Total 350 ml 1000 ml # Voids 6 Laboratory Tests 02/19/20 12:05: Troponin I 0.118H 02/20/20 04:20: Troponin I 0.129H, White Blood Count 5.7, Red Blood Count 3.49L, Hemoglobin 11.2L, Hematocrit 34.2L, Mean Corpuscular Volume 98, Mean Corpuscular Hemoglobin 32.2H, Mean Corpuscular Hemoglobin Concent 32.8, Red Cell Distribution Width 12.2, Platelet Count 138L, Mean Platelet Volume 7.8, Neutrophils (%) (Auto) 42.4L, Lymphocytes (%) (Auto) 44.2, Monocytes (%) (Auto) 10.8H, Eosinophils (%) (Auto) 1.6, Basophils (%) (Auto) 1.1, Sodium Level 141, Potassium Level 4.1, Chloride Level 109H, Carbon Dioxide Level 29, Anion Gap 3L, Blood Urea Nitrogen 12, Creatinine 0.9, Estimat Glomerular Filtration Rate > 60, Glucose Level 80, Calcium Level 8.1L Height (Feet): 5 Height (Inches): 5.00 Weight (Pounds): 205 General Appearance: lethargic EENT: normal ENT inspection Neck: normal alignment Cardiovascular: normal peripheral pulses, normal rate, regular rhythm Respiratory/Chest: chest wall non-tender, lungs clear, normal breath sounds Abdomen: normal bowel sounds, non tender, soft Extremities: normal inspection Edema: no edema noted Arm (L), no edema noted Arm (R), no edema noted Leg (L), no edema noted Leg (R), no edema noted Pedal (L), no edema noted Pedal (R), no edema noted Generalized Neurologic: motor weakness Skin: normal pigmentation, warm/dry Assessment/Plan Problem List: (1) Seizure ICD Codes: R56.9 - Unspecified convulsions SNOMED: 58466481 (2) Tremor ICD Codes: R25.1 - Tremor, unspecified SNOMED: 29312696 (3) Malnutrition ICD Codes: E46 - Unspecified protein-calorie malnutrition SNOMED: 19278070 (4) Anemia ICD Codes: D64.9 - Anemia, unspecified SNOMED: 284850357 (5) Elevated troponin ICD Codes: R77.8 - Other specified abnormalities of plasma proteins SNOMED: 706456690, 042429317, 079394779 (6) Gammopathy ICD Codes: D47.2 - Monoclonal gammopathy SNOMED: 474997359 (7) Schizophrenia ICD Codes: F20.9 - Schizophrenia, unspecified SNOMED: 37149300 (8) Generalized weakness ICD Codes: R53.1 - Weakness SNOMED: 24107220 Status: unchanged Assessment/Plan: bp seizure pain control cardio heme f/u cbc bmp am Partha Smiley DO Feb 20, 2020 10:17
[2020-02-20 12:00] VITALS: BP 156/86
[2020-02-20] MEDS ORDERED: FLUPHENAZI25 MG/1 ML IM (12:09)
[2020-02-20] MEDS ORDERED: DEPAKOTE500 MG PO (12:09)
[2020-02-20] MEDS ORDERED: ATIVAN1 MG ORAL (12:09)
[2020-02-20] MEDS ORDERED: RISPERDAL4 MG ORAL (12:09)
[2020-02-20] MEDS ORDERED: KEPPRA750 MG ORAL (12:09)
[2020-02-20] MEDS ORDERED: BENZTROPINE MESY1 MG ORAL (12:09)
--- NOTE | 2020-02-20 14:57 | Cardiac Electrophysiology PN ---
Assessment/Plan Assessment/Plan 1. Troponin elevation. The patient has 4 elevated troponin all low and flat at around 0.12 and does not have renal failure. Currently, the patient does not have any chest pain. EKG nonischemic and and echocardiogram showed Nl EF. On aspirin, Lopressor 25 bid and Lipitor 40 daily Schedule for stress test 2. Hypertension. On metoprolol 25 mg b.i.d. 3. History of seizures, on Keppra. 4. History of schizophrenia. 5. History of COVID positive in the past. 6. Monoclonal gammopathy with elevated IgG of more than 3000. Further evaluation by Dr. Doll. IgG, IgM, and IgA is pending. The patient potentially may need bone marrow biopsy. Subjective Subjective No events. Slightly bradycardic Objective Last 24 Hour Vital Signs Date Time Temp Pulse Resp B/P (MAP) Pulse Ox O2 Delivery O2 Flow Rate FiO2 02/20/20 12:00 59 02/20/20 12:00 97.7 76 18 156/86 (109) 94 02/20/20 09:00 Room Air 02/20/20 08:17 84 149/65 02/20/20 08:00 98.9 84 18 149/65 (93) 94 02/20/20 08:00 77 02/20/20 04:00 60 02/20/20 04:00 97.7 60 18 141/56 (84) 97 02/20/20 00:00 71 02/20/20 00:00 98.4 63 16 104/55 (71) 96 02/19/20 21:00 63 133/70 02/19/20 21:00 Room Air 02/19/20 20:00 74 02/19/20 20:00 96.9 63 18 133/67 (89) 95 02/19/20 16:00 99.9 61 18 136/74 (94) 97 02/19/20 16:00 58 Intake and Output 02/19/20 02/20/20 19:00 07:00 Intake Total 1070 ml 480 ml Output Total 350 ml 1000 ml Balance 720 ml -520 ml Intake Oral 720 ml 480 ml IV Total 350 ml Output Urine Total 350 ml 1000 ml # Voids 6 Laboratory Tests Test 02/20/20 04:20 White Blood Count 5.7 K/UL (4.8-10.8) Red Blood Count 3.49 M/UL (4.20-5.40) L Hemoglobin 11.2 G/DL (12.0-16.0) L Hematocrit 34.2 % (37.0-47.0) L Mean Corpuscular Volume 98 FL (80-99) Mean Corpuscular Hemoglobin 32.2 PG (27.0-31.0) H Mean Corpuscular Hemoglobin Concent 32.8 G/DL (32.0-36.0) Red Cell Distribution Width 12.2 % (11.6-14.8) Platelet Count 138 K/UL (150-450) L Mean Platelet Volume 7.8 FL (6.5-10.1) Neutrophils (%) (Auto) 42.4 % (45.0-75.0) L Lymphocytes (%) (Auto) 44.2 % (20.0-45.0) Monocytes (%) (Auto) 10.8 % (1.0-10.0) H Eosinophils (%) (Auto) 1.6 % (0.0-3.0) Basophils (%) (Auto) 1.1 % (0.0-2.0) Sodium Level 141 MMOL/L (136-145) Potassium Level 4.1 MMOL/L (3.5-5.1) Chloride Level 109 MMOL/L (98-107) H Carbon Dioxide Level 29 MMOL/L (21-32) Anion Gap 3 mmol/L (5-15) L Blood Urea Nitrogen 12 mg/dL (7-18) Creatinine 0.9 MG/DL (0.55-1.30) Estimat Glomerular Filtration Rate > 60 mL/min (>60) Glucose Level 80 MG/DL (74-106) Calcium Level 8.1 MG/DL (8.5-10.1) L Troponin I 0.129 ng/mL (0.000-0.056) Objective HEAD AND NECK: No JVD. LUNGS: Clear. CARDIOVASCULAR: Regular S1 and S2 with no gallop or murmur. ABDOMEN: Soft. EXTREMITIES: No pitting edema. Compa Anthony MD Feb 20, 2020 14:57
[2020-02-20] MEDS ORDERED: Lexiscan 0.4mg/5ml syringe IV PRN (15:00)
[2020-02-20 16:00] VITALS: BP 155/61
--- NOTE | 2020-02-20 16:14 | NUR ---
NURSE NOTES: Pt rhythm changed to SB, Pt was at 40-50s. Upon assessment, Pt was stable on RA in bed resting. Notified Dr Anthony as he was leaving his rounds. Dr Anthony made aware and has no new orders at this time.
[2020-02-20] MEDS ORDERED: Tubing IV Secondary IV ONE (17:44)
--- NOTE | 2020-02-20 19:04 | NUR ---
NURSE HAND-OFF REPORT: Important Events on Shift: Lexiscan, Cardiac ST w/ meds for 02/21, Bone marrow biposy 02/21, Patient Status: fc, stable on RA Diet: regular Pending Orders: Pending Results/Labs: Pending MD notification: NEEDS CONSENT FOR CARDIAC PROCEDURES and BONE MARROW BIOPSY Latest Vital Signs: Temperature 98.3 , Pulse 53 , B/P 155 /61 , Respiratory Rate 16 , O2 SAT 94 , Room Air, O2 Flow Rate . Vital Sign Comment: EKG Rhythm: Sinus Bradycardia Rhythm change?: N Notified?: Hortencia Soni MD Response: n/a Latest Ricks Fall Score: 60 Fall Risk: High Risk Safety Measures: Call light Within Reach, Bed Alarm Zone 2, Side Rails Side Rails x3, Bed position Low and Locked. Fall Precautions: Yellow Socks Yellow Gown Door Sign Patient Fall Education Report update given to NADINE Hanks .
--- NOTE | 2020-02-20 19:10 | NUR ---
NURSE NOTES: Report received from Barbara MCCOY. Patient awake alert and makes needs known with no SOB or acute distress. Patient is alert and oriented x2 with confusion noted. truck driver salesperson intact and reading 69 BPM Sinus rhythm. Call light in reach. Bed at lowest positon locked with side rails up. Will continue with plan of care.
[2020-02-20 20:00] VITALS: BP 151/68
[2020-02-20] MEDS: Atorvastatin 20mg tab ORAL SCH (20:54)
--- NOTE | 2020-02-20 23:31 | Psychiatric Progress Note ---
Psychiatry Progress Note Psychiatry Progress Note Medications Current Medications Medications (Trade) Dose Ordered Sig/Lisha Route PRN Reason Start Time Stop Time Status Last Admin Dose Admin Acetaminophen (Tylenol) 650 mg Q6HR PRN ORAL Mild Pain/Fever 101.0 02/18/20 22:30 03/19/20 22:29 Aspirin (Ecotrin) 81 mg DAILY ORAL 02/21/20 09:00 04/06/20 08:59 Atorvastatin Calcium (Lipitor) 40 mg BEDTIME ORAL 02/20/20 21:00 05/20/20 20:59 02/20/20 20:54 Clonidine HCl (Catapres Tab) 0.1 mg Q4H PRN ORAL sbp>170 02/19/20 12:00 05/19/20 11:59 Divalproex Sodium (Depakote ER) 1,000 mg EVERY 12 HOURS ORAL 02/19/20 00:00 03/20/20 00:00 02/20/20 20:53 Dorzolamide HCl (Trusopt) 1 drop TID BOTH EYES 02/19/20 09:00 03/20/20 08:59 02/20/20 17:37 Ferrous Sulfate (Feosol) 325 mg DAILY ORAL 02/19/20 09:00 05/19/20 08:59 02/20/20 08:16 Haloperidol Lactate (Haldol) 5 mg Q6H PRN IM Agitation 02/19/20 15:30 04/04/20 15:29 Heparin Sodium (Porcine) (Heparin 5000 units/ml) 5,000 units EVERY 12 HOURS SUBQ 02/19/20 09:00 04/04/20 08:59 02/20/20 20:55 Levetiracetam 750 mg/Sodium Chloride 117.5 ml @ 470 mls/hr Q8HR IV 02/19/20 22:00 04/04/20 21:59 02/20/20 13:21 Metoprolol Tartrate (Lopressor) 25 mg EVERY 12 HOURS ORAL 02/19/20 21:00 05/19/20 20:59 02/20/20 20:53 Morphine Sulfate (Morphine Sulfate) 1 mg Q8HR PRN IVP Moderate Pain (Pain Scale 4-6) 02/18/20 22:30 02/25/20 22:29 Multivitamins (Multivitamins) 1 tab DAILY ORAL 02/19/20 09:00 03/20/20 08:59 02/20/20 08:23 Ondansetron HCl (Zofran) 4 mg Q6H PRN IVP Nausea & Vomiting 02/18/20 22:30 03/19/20 22:29 Regadenoson (Lexiscan) 0.4 mg ONCE PRN IV Stress Test 02/20/20 15:00 05/20/20 14:59 Risperidone (RisperDAL) 6 mg BEDTIME ORAL 02/19/20 21:00 04/04/20 20:59 02/20/20 20:53 Sodium Chloride 1,000 ml @ 70 mls/hr [id number] IV 02/18/20 22:30 03/19/20 22:29 02/20/20 05:55 Tramadol HCl (Ultram) 50 mg Q8HR PRN ORAL Severe Pain (Pain Scale 7-10) 02/18/20 22:30 02/25/20 22:29 Zolpidem Tartrate (Ambien) 5 mg HSPRN PRN ORAL Insomnia 02/18/20 22:30 02/25/20 22:29 Neurological/Psychiatric: Reports: anxiety, depressed Allergies: Coded Allergies: No Known Allergies (Unverified , 02/24/19) Objective Data Height (Feet): 5 Height (Inches): 5.00 Weight (Pounds): 205 General Appearance: no apparent distress, alert Additional Comments: alert, oriented times self, place. Mood is anxious. Affect is blunted, congruent with mood. Thought process is concrete. Thought content, no suicidal or homicidal ideation. Cognition is intact. Insight and judgment is fair. Assessment/Plan Problem List: (1) Schizophrenia (2) Anxiety disorder Status: unchanged Assessment/Plan: PLAN: 1. Continue the current psychotropic medication. 2. Decrease the risperidone to 6 mg at bedtime. 3. Haldol IM as needed. 4. Provide the patient with reality orientation. Yonis Escalante MD Feb 20, 2020 23:31
[2020-02-21] VITALS: BP 118/57
[2020-02-21 04:00] VITALS: BP 148/63
[2020-02-21] MEDS: levETIRAcetam 750 MG in NS 110 ML IV SCH ×3 (05:41→22:03)
--- NOTE | 2020-02-21 05:59 | NUR ---
NURSE NOTES: Wound care eval order placed for Sacral crease opening.
--- NOTE | 2020-02-21 07:00 | NUR ---
NURSE NOTES: Received report from NADINE Hanks. Pt is AOx2, stable on RA. Pt has a sacral tear stage 2, B breast fold redness noted. IV on RAC 20g running NS at 70cc. Pt bed low and locked, call light in reach and bed alarm on. Side rails padded, suction bedside.
--- NOTE | 2020-02-21 07:05 | NUR ---
HAND-OFF: Report given to Barbara MCCOY. Patient is stable alert oriented x2.
[2020-02-21 07:54] VITALS: BP 169/87
[2020-02-21] MEDS: Depakote ER 500mg tab ORAL SCH ×3 (08:00→22:04)
[2020-02-21] MEDS: Heparin 5000 units/ml inj SUBQ SCH ×3 (08:01→22:06)
[2020-02-21] MEDS: Dorzolamide 2% 10ml Btl BOTH EYES SCH ×3 (08:14→17:47)
[2020-02-21 08:31] LABS: EOSINOPHILS % (AUTO) 1.6 % (0.0-3.0); HEMATOCRIT 35.2 % (37.0-47.0); HEMOGLOBIN 11.6 G/DL (12.0-16.0); LYMPHOCYTES % (AUTO) 34.9 % (20.0-45.0); MEAN CORPUSCULAR VOLUME 101 FL (80-99); MONOCYTES % (AUTO) 12.2 % (1.0-10.0); NEUTROPHILS % (AUTO) 50.3 % (45.0-75.0); PLATELET COUNT 145 K/UL (150-450); RED BLOOD COUNT 3.49 M/UL (4.20-5.40); RED CELL DISTRIBUTION WIDTH 12.2 % (11.6-14.8); WHITE BLOOD COUNT 5.5 K/UL (4.8-10.8)
[2020-02-21 08:41] LABS: ANION GAP 6 mmol/L (5-15); BLOOD UREA NITROGEN 8 mg/dL (7-18); CARBON DIOXIDE 28 MMOL/L (21-32); CHLORIDE 108 MMOL/L (98-107); CREATININE 0.9 MG/DL (0.55-1.30); POTASSIUM 3.7 MMOL/L (3.5-5.1); SODIUM 142 MMOL/L (136-145)
--- NOTE | 2020-02-21 09:12 | General Progress Note ---
Subjective Constitutional: Reports: weakness Allergies: Coded Allergies: No Known Allergies (Unverified , 02/24/19) All Systems: reviewed and negative except above Subjective calm in bed Objective Last 24 Hour Vital Signs Date Time Temp Pulse Resp B/P (MAP) Pulse Ox O2 Delivery O2 Flow Rate FiO2 02/21/20 08:00 75 169/87 02/21/20 07:54 98.8 75 19 169/87 (114) 99 02/21/20 04:00 97.5 53 18 148/63 (91) 97 02/21/20 04:00 55 02/21/20 00:00 55 02/21/20 00:00 96.9 64 16 118/57 (77) 96 02/20/20 21:00 Room Air 02/20/20 20:53 64 125/74 02/20/20 20:00 72 02/20/20 20:00 98.8 64 16 151/68 (95) 96 02/20/20 16:04 53 02/20/20 16:00 98.3 51 16 155/61 (92) 94 02/20/20 12:00 59 02/20/20 12:00 97.7 76 18 156/86 (109) 94 Intake and Output 02/20/20 02/21/20 19:00 07:00 Intake Total 1310 ml 720 ml Output Total 1500 ml 1100 ml Balance -190 ml -380 ml Intake Oral 360 ml 720 ml Other 950 ml Output Urine Total 1500 ml 1100 ml # Bowel Movements 1 Laboratory Tests 02/21/20 06:10: White Blood Count 5.5, Red Blood Count 3.49L, Hemoglobin 11.6L, Hematocrit 35.2L , Mean Corpuscular Volume 101H, Mean Corpuscular Hemoglobin 33.2H, Mean Corpuscular Hemoglobin Concent 32.9, Red Cell Distribution Width 12.2, Platelet Count 145L, Mean Platelet Volume 8.4, Neutrophils (%) (Auto) 50.3, Lymphocytes (%) (Auto) 34.9, Monocytes (%) (Auto) 12.2H, Eosinophils (%) (Auto) 1.6, Basophils (%) (Auto) 1.0, Sodium Level 142, Potassium Level 3.7, Chloride Level 108H, Carbon Dioxide Level 28, Anion Gap 6, Blood Urea Nitrogen 8, Creatinine 0.9, Estimat Glomerular Filtration Rate > 60, Glucose Level 85, Calcium Level 8.0L Height (Feet): 5 Height (Inches): 5.00 Weight (Pounds): 205 General Appearance: lethargic EENT: normal ENT inspection Neck: normal alignment Cardiovascular: normal peripheral pulses, normal rate, regular rhythm Respiratory/Chest: chest wall non-tender, lungs clear, normal breath sounds Abdomen: normal bowel sounds, non tender, soft Extremities: normal inspection Edema: no edema noted Arm (L), no edema noted Arm (R), no edema noted Leg (L), no edema noted Leg (R), no edema noted Pedal (L), no edema noted Pedal (R), no edema noted Generalized Neurologic: motor weakness Skin: normal pigmentation, warm/dry Assessment/Plan Problem List: (1) Seizure ICD Codes: R56.9 - Unspecified convulsions SNOMED: 03925037 (2) Tremor ICD Codes: R25.1 - Tremor, unspecified SNOMED: 00727103 (3) Malnutrition ICD Codes: E46 - Unspecified protein-calorie malnutrition SNOMED: 74950164 (4) Anemia ICD Codes: D64.9 - Anemia, unspecified SNOMED: 763700227 (5) Elevated troponin ICD Codes: R77.8 - Other specified abnormalities of plasma proteins SNOMED: 230519949, 135167275, 282120007 (6) Gammopathy ICD Codes: D47.2 - Monoclonal gammopathy SNOMED: 044798584 (7) Schizophrenia ICD Codes: F20.9 - Schizophrenia, unspecified SNOMED: 20323306 (8) Generalized weakness ICD Codes: R53.1 - Weakness SNOMED: 09567267 Status: unchanged Assessment/Plan: bp seizure pain control cardio heme f/u cbc bmp am jaimeu Partha Dobson DO Feb 21, 2020 09:12
--- NOTE | 2020-02-21 09:39 | NUR ---
NURSE NOTES: Called public guardian for NM Lexiscan and Cardiac ST w/ med consent. No answer, left voicemail again and awaiting call back. Per previous nurses note and social services director note, Pt public guarantor cannot give consent for invasive procedures, need two MD consent.
[2020-02-21] MEDS: Aspirin EC 81mg tab ORAL SCH (09:53)
--- NOTE | 2020-02-21 10:24 | Hematology/Onc Progress Note ---
Assessment/Plan Assessment/Plan Assessment and Recs # Monoclonal gammopathy -- elevated IGG >3000 --> will order spep and igg, igm, iga--> igg 2721 --> will dw path for potential bone marrow biopsy>requires 2 MD consent, have lauri Rn --> smear has been ordered as well --> will follow w/u # Anemia due to chronic disease --> anemia panel to order --> transfuse as needed --> also low plts --> hgb 10 # Elevated trop --> per cards, downtrending # Schizphrenia --> per psych # Dvt ppx scds ==> hep of if plt >75k Appreciate consultation and lauri RN Subjective Constitutional: Denies: no symptoms, chills, fever, malaise, weakness, other HEENT: Denies: no symptoms, eye pain, blurred vision, tearing, double vision, ear pain, ear discharge, nose pain, nose congestion, throat pain, throat s welling, mouth pain, mouth swelling, other Cardiovascular: Denies: no symptoms, chest pain, edema, irregular heart rate, lightheadedness, palpitations, syncope, other Gastrointestinal/Abdominal: Denies: no symptoms, abdomen distended, abdominal pain, black stools, tarry stools, blood in stool, constipated, diarrhea, difficulty swallowing, nausea, poor appetite, poor fluid intake, rectal bleeding, vomiting, other Neurologic/Psychiatric: Denies: no symptoms, anxiety, depressed, emotional problems, headache, numbness, paresthesia, pre-existing deficit, seizure, tingling, tremors, weakness, other Endocrine: Denies: no symptoms, excessive sweating, flushing, intolerance to cold, intolerance to heat, increased hunger, increased thirst, increased urine, unexplained weight gain, unexplained weight loss, other Hematologic/Lymphatic: Denies: no symptoms, anemia, easy bleeding, easy bruising, adenopathy, other Allergies: Coded Allergies: No Known Allergies (Unverified , 02/24/19) Subjective 02/20 for kendy goddard consult, lauri pcp, no bleeding, plt 140 range Objective Objective Current Medications Medications (Trade) Dose Ordered Sig/Lisha Route PRN Reason Start Time Stop Time Status Last Admin Dose Admin Acetaminophen (Tylenol) 650 mg Q6HR PRN ORAL Mild Pain/Fever 101.0 02/18/20 22:30 11/28/20 22:29 Aspirin (Ecotrin) 81 mg DAILY ORAL 02/21/20 09:00 04/06/20 08:59 02/21/20 09:53 Atorvastatin Calcium (Lipitor) 40 mg BEDTIME ORAL 02/20/20 21:00 05/20/20 20:59 02/20/20 20:54 Clonidine HCl (Catapres Tab) 0.1 mg Q4H PRN ORAL sbp>170 02/19/20 12:00 05/19/20 11:59 Divalproex Sodium (Depakote ER) 1,000 mg EVERY 12 HOURS ORAL 02/19/20 00:00 03/20/20 00:00 02/21/20 08:00 Dorzolamide HCl (Trusopt) 1 drop TID BOTH EYES 02/19/20 09:00 03/20/20 08:59 02/21/20 08:14 Ferrous Sulfate (Feosol) 325 mg DAILY ORAL 02/19/20 09:00 05/19/20 08:59 02/21/20 08:00 Haloperidol Lactate (Haldol) 5 mg Q6H PRN IM Agitation 02/19/20 15:30 04/04/20 15:29 Heparin Sodium (Porcine) (Heparin 5000 units/ml) 5,000 units EVERY 12 HOURS SUBQ 02/19/20 09:00 04/04/20 08:59 02/21/20 08:01 Levetiracetam 750 mg/Sodium Chloride 117.5 ml @ 470 mls/hr Q8HR IV 02/19/20 22:00 04/04/20 21:59 02/21/20 05:41 Metoprolol Tartrate (Lopressor) 25 mg EVERY 12 HOURS ORAL 02/19/20 21:00 05/19/20 20:59 02/21/20 08:00 Morphine Sulfate (Morphine Sulfate) 1 mg Q8HR PRN IVP Moderate Pain (Pain Scale 4-6) 02/18/20 22:30 02/25/20 22:29 Multivitamins (Multivitamins) 1 tab DAILY ORAL 02/19/20 09:00 03/20/20 08:59 02/21/20 07:59 Ondansetron HCl (Zofran) 4 mg Q6H PRN IVP Nausea & Vomiting 02/18/20 22:30 03/19/20 22:29 Regadenoson (Lexiscan) 0.4 mg ONCE PRN IV Stress Test 02/20/20 15:00 05/20/20 14:59 Risperidone (RisperDAL) 6 mg BEDTIME ORAL 02/19/20 21:00 04/04/20 20:59 02/20/20 20:53 Sodium Chloride 1,000 ml @ 70 mls/hr [id number] IV 02/18/20 22:30 03/19/20 22:29 02/20/20 05:55 Tramadol HCl (Ultram) 50 mg Q8HR PRN ORAL Severe Pain (Pain Scale 7-10) 02/18/20 22:30 02/25/20 22:29 Zolpidem Tartrate (Ambien) 5 mg HSPRN PRN ORAL Insomnia 02/18/20 22:30 02/25/20 22:29 Last 24 Hour Vital Signs Date Time Temp Pulse Resp B/P (MAP) Pulse Ox O2 Delivery O2 Flow Rate FiO2 02/21/20 09:00 Room Air 02/21/20 08:00 55 02/21/20 08:00 75 169/87 02/21/20 07:54 98.8 75 19 169/87 (114) 99 02/21/20 04:00 97.5 53 18 148/63 (91) 97 02/21/20 04:00 55 02/21/20 00:00 55 02/21/20 00:00 96.9 64 16 118/57 (77) 96 02/20/20 21:00 Room Air 02/20/20 20:53 64 125/74 02/20/20 20:00 72 02/20/20 20:00 98.8 64 16 151/68 (95) 96 02/20/20 16:04 53 02/20/20 16:00 98.3 51 16 155/61 (92) 94 02/20/20 12:00 59 02/20/20 12:00 97.7 76 18 156/86 (109) 94 02/20/20 09:00 Room Air 02/20/20 08:17 84 149/65 02/20/20 08:00 98.9 84 18 149/65 (93) 94 02/20/20 08:00 77 02/20/20 04:00 60 10/31/20 04:00 97.7 60 18 141/56 (84) 97 02/20/20 00:00 71 02/20/20 00:00 98.4 63 16 104/55 (71) 96 02/19/20 21:00 63 133/70 02/19/20 21:00 Room Air 02/19/20 20:00 74 02/19/20 20:00 96.9 63 18 133/67 (89) 95 02/19/20 16:00 99.9 61 18 136/74 (94) 97 02/19/20 16:00 58 02/19/20 12:05 Room Air 02/19/20 11:37 98.1 65 16 143/69 (93) 95 Intake and Output 02/20/20 02/21/20 19:00 07:00 Intake Total 1310 ml 720 ml Output Total 1500 ml 1100 ml Balance -190 ml -380 ml Intake Oral 360 ml 720 ml Other 950 ml Output Urine Total 1500 ml 1100 ml # Bowel Movements 1 Labs Test 02/18/20 18:50 02/19/20 04:45 02/19/20 12:05 02/20/20 04:20 White Blood Count 6.1 K/UL (4.8-10.8) 6.3 K/UL (4.8-10.8) 5.7 K/UL (4.8-10.8) Red Blood Count 3.89 M/UL (4.20-5.40) 3.36 M/UL (4.20-5.40) 3.49 M/UL (4.20-5.40) Hemoglobin 12.6 G/DL (12.0-16.0) 10.9 G/DL (12.0-16.0) 11.2 G/DL (12.0-16.0) Hematocrit 39.3 % (37.0-47.0) 33.0 % (37.0-47.0) 34.2 % (37.0-47.0) Mean Corpuscular Volume 101 FL (80-99) 98 FL (80-99) 98 FL (80-99) Mean Corpuscular Hemoglobin 32.3 PG (27.0-31.0) 32.4 PG (27.0-31.0) 32.2 PG (27.0-31.0) Mean Corpuscular Hemoglobin Concent 32.0 G/DL (32.0-36.0) 33.0 G/DL (32.0-36.0) 32.8 G/DL (32.0-36.0) Red Cell Distribution Width 12.6 % (11.6-14.8) 12.8 % (11.6-14.8) 12.2 % (11.6-14.8) Platelet Count 167 K/UL (150-450) 142 K/UL (150-450) 138 K/UL (150-450) Mean Platelet Volume 7.3 FL (6.5-10.1) 7.4 FL (6.5-10.1) 7.8 FL (6.5-10.1) Neutrophils (%) (Auto) 47.8 % (45.0-75.0) 50.9 % (45.0-75.0) 42.4 % (45.0-75.0) Lymphocytes (%) (Auto) 35.3 % (20.0-45.0) 32.4 % (20.0-45.0) 44.2 % (20.0-45.0) Monocytes (%) (Auto) 13.7 % (1.0-10.0) 12.8 % (1.0-10.0) 10.8 % (1.0-10.0) Eosinophils (%) (Auto) 1.8 % (0.0-3.0) 1.6 % (0.0-3.0) 1.6 % (0.0-3.0) Basophils (%) (Auto) 1.4 % (0.0-2.0) 2.3 % (0.0-2.0) 1.1 % (0.0-2.0) Prothrombin Time 10.9 SEC (9.30-11.50) Prothromb Time International Ratio 1.0 (0.9-1.1) Activated Partial Thromboplast Time 24 SEC (23-33) Sodium Level 140 MMOL/L (136-145) 137 MMOL/L (136-145) 141 MMOL/L (136-145) Potassium Level 3.9 MMOL/L (3.5-5.1) 4.0 MMOL/L (3.5-5.1) 4.1 MMOL/L (3.5-5.1) Chloride Level 104 MMOL/L (98-107) 104 MMOL/L (98-107) 109 MMOL/L (98-107) Carbon Dioxide Level 31 MMOL/L (21-32) 30 MMOL/L (21-32) 29 MMOL/L (21-32) Anion Gap 6 mmol/L (5-15) 3 mmol/L (5-15) 3 mmol/L (5-15) Blood Urea Nitrogen 17 mg/dL (7-18) 17 mg/dL (7-18) 12 mg/dL (7-18) Creatinine 0.9 MG/DL (0.55-1.30) 0.9 MG/DL (0.55-1.30) 0.9 MG/DL (0.55-1.30) Estimat Glomerular Filtration Rate > 60 mL/min (>60) > 60 mL/min (>60) > 60 mL/min (>60) Glucose Level 100 MG/DL (74-106) 80 MG/DL (74-106) 80 MG/DL (74-106) Calcium Level 8.7 MG/DL (8.5-10.1) 8.2 MG/DL (8.5-10.1) 8.1 MG/DL (8.5-10.1) Total Bilirubin 0.3 MG/DL (0.2-1.0) Aspartate Amino Transf (AST/SGOT) 35 U/L (15-37) Alanine Aminotransferase (ALT/SGPT) 26 U/L (12-78) Alkaline Phosphatase 66 U/L (46-116) Troponin I 0.121 ng/mL (0.000-0.056) 0.103 ng/mL (0.000-0.056) 0.118 ng/mL (0.000-0.056) 0.129 ng/mL (0.000-0.056) Pro-B-Type Natriuretic Peptide 229 pg/mL (0-125) Total Protein 7.7 G/DL (6.4-8.2) Albumin 2.8 G/DL (3.4-5.0) Globulin 4.9 g/dL Albumin/Globulin Ratio 0.6 (1.0-2.7) Lipase 164 U/L (73-393) Valproic Acid (Depakene) Level 78 MCG/ML (50-100) Immunoglobulin G 2721 mg/dL (586-1602) Immunoglobulin A 265 mg/dL (87-352) Immunoglobulin M 70 mg/dL (26-217) Test 02/21/20 06:10 White Blood Count 5.5 K/UL (4.8-10.8) Red Blood Count 3.49 M/UL (4.20-5.40) Hemoglobin 11.6 G/DL (12.0-16.0) Hematocrit 35.2 % (37.0-47.0) Mean Corpuscular Volume 101 FL (80-99) Mean Corpuscular Hemoglobin 33.2 PG (27.0-31.0) Mean Corpuscular Hemoglobin Concent 32.9 G/DL (32.0-36.0) Red Cell Distribution Width 12.2 % (11.6-14.8) Platelet Count 145 K/UL (150-450) Mean Platelet Volume 8.4 FL (6.5-10.1) Neutrophils (%) (Auto) 50.3 % (45.0-75.0) Lymphocytes (%) (Auto) 34.9 % (20.0-45.0) Monocytes (%) (Auto) 12.2 % (1.0-10.0) Eosinophils (%) (Auto) 1.6 % (0.0-3.0) Basophils (%) (Auto) 1.0 % (0.0-2.0) Sodium Level 142 MMOL/L (136-145) Potassium Level 3.7 MMOL/L (3.5-5.1) Chloride Level 108 MMOL/L (98-107) Carbon Dioxide Level 28 MMOL/L (21-32) Anion Gap 6 mmol/L (5-15) Blood Urea Nitrogen 8 mg/dL (7-18) Creatinine 0.9 MG/DL (0.55-1.30) Estimat Glomerular Filtration Rate > 60 mL/min (>60) Glucose Level 85 MG/DL (74-106) Calcium Level 8.0 MG/DL (8.5-10.1) Height (Feet): 5 Height (Inches): 5.00 Weight (Pounds): 205 Objective Physical Exam Vitals: reviewed, normal General: normal inspection, alert, GCS 15, Chronically Ill Head: atraumatic, normal rom Resp: normal inspection, lungs clear, normal breath sounds Cardiovascular: regular rate, rhythm, no edema Gi: normal inspection, normal bowel sounds, non tender, soft, no guarding, no hernia Gu: no CVA tenderness Msk: normal inspection, back normal, normal range of motion Neurologic: bilateral upper extremity pill-rolling tremor Psychiatric: mood/affect normal, other - Some delusions Tobin Doll MD Feb 21, 2020 10:24
[2020-02-21 12:00] VITALS: BP 168/55
--- NOTE | 2020-02-21 12:53 | NUR ---
NURSE NOTES: Pt unable to consent for self. Per cardiology, procedure requires two MD verbal consent. contacted Dr Smiley and Dr Seymour regarding consent and need for verbal consent documentation. Awaiting page back. Addendum: 02/21/20 at 1258 by Barbara Mccormack RN RN manager technical support brought up consent for 2 MD signature. Left in physical chart for Md Seymour and Md Smiley to sign. Awaiting call back Addendum: 02/21/20 at 1746 by Barbara Mccormack RN RN Md seymour responded "Will sign"
--- NOTE | 2020-02-21 13:20 | NUR ---
CARDIOLOGY Patient is unable to sign consent for stress test. We need two MD on the case to give written consent in EMR notes or sign consent form. NADINE Jimenez is aware and has contacted MD Anthony and MD Smiley.
--- NOTE | 2020-02-21 13:59 | Cardiac Electrophysiology PN ---
Assessment/Plan Assessment/Plan 1. Troponin elevation. She has 4 elevated troponin all low and flat at around 0.12 but does not have renal failure. Denies any chest pain. EKG nonischemic and and echocardiogram showed Nl EF. On aspirin, Lopressor 25 bid and Lipitor 40 daily Scheduled for stress test pending consent 2. Hypertension. On metoprolol 25 mg b.i.d. 3. History of seizures, on Keppra. 4. History of schizophrenia. 5. History of COVID positive in the past. 6. Monoclonal gammopathy with elevated IgG of more than 3000. Further evaluation by Dr. Doll. IgG, IgM, and IgA is pending. May need bone marrow biopsy. MYRNA RN Subjective Subjective No events. No CP or SOB. Awaiting public guardian consent for stress test Objective Last 24 Hour Vital Signs Date Time Temp Pulse Resp B/P (MAP) Pulse Ox O2 Delivery O2 Flow Rate FiO2 02/21/20 12:00 98.6 59 19 168/55 (92) 99 02/21/20 09:00 Room Air 02/21/20 08:00 55 02/21/20 08:00 75 169/87 02/21/20 07:54 98.8 75 19 169/87 (114) 99 02/21/20 04:00 97.5 53 18 148/63 (91) 97 02/21/20 04:00 55 02/21/20 00:00 55 02/21/20 00:00 96.9 64 16 118/57 (77) 96 02/20/20 21:00 Room Air 02/20/20 20:53 64 125/74 02/20/20 20:00 72 02/20/20 20:00 98.8 64 16 151/68 (95) 96 02/20/20 16:04 53 02/20/20 16:00 98.3 51 16 155/61 (92) 94 Intake and Output 02/20/20 02/21/20 19:00 07:00 Intake Total 1310 ml 720 ml Output Total 1500 ml 1100 ml Balance -190 ml -380 ml Intake Oral 360 ml 720 ml Other 950 ml Output Urine Total 1500 ml 1100 ml # Bowel Movements 1 Laboratory Tests Test 02/21/20 06:10 White Blood Count 5.5 K/UL (4.8-10.8) Red Blood Count 3.49 M/UL (4.20-5.40) L Hemoglobin 11.6 G/DL (12.0-16.0) L Hematocrit 35.2 % (37.0-47.0) L Mean Corpuscular Volume 101 FL (80-99) H Mean Corpuscular Hemoglobin 33.2 PG (27.0-31.0) H Mean Corpuscular Hemoglobin Concent 32.9 G/DL (32.0-36.0) Red Cell Distribution Width 12.2 % (11.6-14.8) Platelet Count 145 K/UL (150-450) L Mean Platelet Volume 8.4 FL (6.5-10.1) Neutrophils (%) (Auto) 50.3 % (45.0-75.0) Lymphocytes (%) (Auto) 34.9 % (20.0-45.0) Monocytes (%) (Auto) 12.2 % (1.0-10.0) H Eosinophils (%) (Auto) 1.6 % (0.0-3.0) Basophils (%) (Auto) 1.0 % (0.0-2.0) Sodium Level 142 MMOL/L (136-145) Potassium Level 3.7 MMOL/L (3.5-5.1) Chloride Level 108 MMOL/L (98-107) H Carbon Dioxide Level 28 MMOL/L (21-32) Anion Gap 6 mmol/L (5-15) Blood Urea Nitrogen 8 mg/dL (7-18) Creatinine 0.9 MG/DL (0.55-1.30) Estimat Glomerular Filtration Rate > 60 mL/min (>60) Glucose Level 85 MG/DL (74-106) Calcium Level 8.0 MG/DL (8.5-10.1) L Objective HEAD AND NECK: No JVD. LUNGS: Clear. CARDIOVASCULAR: Regular S1 and S2 with no gallop or murmur. ABDOMEN: Soft. EXTREMITIES: No pitting edema. Compa Anthony MD Feb 21, 2020 13:59
[2020-02-21 16:04] VITALS: BP 142/67
--- NOTE | 2020-02-21 17:31 | NUR ---
NURSE NOTES: Paged Md Anthony and Md Smiley again regarding Pt consent. Awaiting call back.
--- NOTE | 2020-02-21 19:20 | NUR ---
NURSE HAND-OFF REPORT: Important Events on Shift: NEED CONSENT FOR CARDIAC ST TEST AND BONE MARROW BIOPSY 02/21 Patient Status: fc, stable Diet: NPO AT MIDNIGHT Pending Orders: CONSENT Pending Results/Labs: Pending notification: CONSENT Latest Vital Signs: Temperature 97.9 , Pulse 65 , B/P 142 /67 , Respiratory Rate 18 , O2 SAT 96 , Room Air, O2 Flow Rate . Vital Sign Comment: EKG Rhythm: Sinus Rhythm Rhythm change?: Hortencia PEOPLES Notified?: Bonita Soni MD Response: Latest Ricks Fall Score: 60 Fall Risk: High Risk Safety Measures: Call light Within Reach, Bed Alarm Zone 2, Side Rails Side Rails x3, Bed position Low and Locked. Fall Precautions: Yellow Socks Yellow Gown Door Sign Patient Fall Education Report given to NADINE Rocha.
--- NOTE | 2020-02-21 19:27 | NUR ---
NURSE NOTES: Received report from NADINE Jimenez. Patient is resting in semi-fowlers position. On room air; no acute distress noted at this time. Patient is AOx2. Patient is not reporting pain at this time. IV site is on left AC 20G running NS @ 70ml/hr as ordered; patent and flushed.n Ne erythema or bleeding noted. Bed is low and locked, side rails up x3 top two side rails are padded. Patient has been educated to use call light when needing assistance. Call light in reach and bed alarm on. Will continue plan of care.
[2020-02-21 20:00] VITALS: BP 144/53
[2020-02-21] MEDS: Atorvastatin 20mg tab ORAL SCH ×2 (21:00→22:05)
[2020-02-22] VITALS (11 sets, daily range): BP systolic 123–159; BP diastolic 54–86
--- NOTE | 2020-02-22 01:04 | NUR ---
NURSE NOTES: Received report from NADINE Jimenez. Patient is resting in semi-fowlers position. On room air; no acute distress noted at this time. Patient is AOx2. Patient is not reporting pain at this time. IV site is on left AC 20G running NS @ 70ml/hr as ordered; patent and flushed.n Ne erythema or bleeding noted. Bed is low and locked, side rails up x3 top two side rails are padded. Patient has been educated to use call light when needing assistance. Call light in reach and bed alarm on. Will continue plan of care. Addendum: 02/22/20 at 0110 by Josefina Manjarrez RN duplicate note
[2020-02-22] MEDS: levETIRAcetam 750 MG in NS 110 ML IV SCH ×3 (05:08→22:50)
--- NOTE | 2020-02-22 06:55 | Hematology/Onc Progress Note ---
Assessment/Plan Assessment/Plan Assessment and Recs # Monoclonal gammopathy -- elevated IGG >3000 --> will order spep and igg, igm, iga--> igg 2721 --> will dw path for potential bone marrow biopsy>requires 2 MD consent, have lauri Rn --> smear has been ordered as well --> will follow w/u --> 2MD consent required as patient has no decision maker, I have given my consent --> same for stress test # Anemia due to chronic disease --> anemia panel to order --> transfuse as needed --> also low plts --> hgb 10->11.6 # Thrombocytopenia --> acute onset --> plt 167-->145 --> likely due to above # Elevated trop --> per cards, downtrending # Schizphrenia --> per psych # Dvt ppx scds ==> hep of if plt >75k Appreciate consultation and lauri RN Subjective HEENT: Denies: no symptoms, eye pain, blurred vision, tearing, double vision, ear pain, ear discharge, nose pain, nose congestion, throat pain, throat swelling, mouth pain, mouth swelling, other Cardiovascular: Denies: no symptoms, chest pain, edema, irregular heart rate, lightheadedness, palpitations, syncope, other Respiratory: Denies: no symptoms, cough, shortness of breath, SOB with excertion, SOB at rest, sputum, wheezing, other Gastrointestinal/Abdominal: Denies: no symptoms, abdomen distended, abdominal pain, black stools, tarry stools, blood in stool, constipated, diarrhea, difficulty swallowing, nausea, poor appetite, poor fluid intake, rectal bleeding, vomiting, other Genitourinary: Denies: no symptoms, burning, discharge, frequency, flank pain, hematuria, incontinence, pain, urgency, other Neurologic/Psychiatric: Denies: no symptoms, anxiety, depressed, emotional problems, headache, numbness, paresthesia, pre-existing deficit, seizure, tingling, tremors, weakness, other Endocrine: Denies: no symptoms, excessive sweating, flushing, intolerance to cold, intolerance to heat, increased hunger, increased thirst, increased urine, unexplained weight gain, unexplained weight loss, other Hematologic/Lymphatic: Denies: no symptoms, anemia, easy bleeding, easy bruising, adenopathy, other Allergies: Coded Allergies: No Known Allergies (Unverified , 02/24/19) Subjective 02/20 for kendy aru consult, lauri pcp, no bleeding, plt 140 range 02/21 Ra and on fluids, lauri Rn in am, for placement, and stress test/biospy, have dw path Objective Objective Current Medications Medications (Trade) Dose Ordered Sig/Lisha Route PRN Reason Start Time Stop Time Status Last Admin Dose Admin Acetaminophen (Tylenol) 650 mg Q6HR PRN ORAL Mild Pain/Fever 101.0 02/18/20 22:30 03/19/20 22:29 Aspirin (Ecotrin) 81 mg DAILY ORAL 02/21/20 09:00 04/06/20 08:59 02/21/20 09:53 Atorvastatin Calcium (Lipitor) 40 mg BEDTIME ORAL 02/20/20 21:00 05/20/20 20:59 02/20/20 20:54 Clonidine HCl (Catapres Tab) 0.1 mg Q4H PRN ORAL sbp>170 02/19/20 12:00 05/19/20 11:59 Divalproex Sodium (Depakote ER) 1,000 mg EVERY 12 HOURS ORAL 02/19/20 00:00 03/20/20 00:00 02/21/20 08:00 Dorzolamide HCl (Trusopt) 1 drop TID BOTH EYES 02/19/20 09:00 03/20/20 08:59 02/21/20 17:47 Ferrous Sulfate (Feosol) 325 mg DAILY ORAL 02/19/20 09:00 05/19/20 08:59 02/21/20 08:00 Haloperidol Lactate (Haldol) 5 mg Q6H PRN IM Agitation 02/19/20 15:30 04/04/20 15:29 Heparin Sodium (Porcine) (Heparin 5000 units/ml) 5,000 units EVERY 12 HOURS SUBQ 02/19/20 09:00 04/04/20 08:59 02/21/20 08:01 Levetiracetam 750 mg/Sodium Chloride 117.5 ml @ 470 mls/hr Q8HR IV 02/19/20 22:00 04/04/20 21:59 02/22/20 05:08 Metoprolol Tartrate (Lopressor) 25 mg EVERY 12 HOURS ORAL 02/19/20 21:00 05/19/20 20:59 02/21/20 08:00 Morphine Sulfate (Morphine Sulfate) 1 mg Q8HR PRN IVP Moderate Pain (Pain Scale 4-6) 02/18/20 22:30 02/25/20 22:29 Multivitamins (Multivitamins) 1 tab DAILY ORAL 02/19/20 09:00 03/20/20 08:59 02/21/20 07:59 Ondansetron HCl (Zofran) 4 mg Q6H PRN IVP Nausea & Vomiting 02/18/20 22:30 03/19/20 22:29 Regadenoson (Lexiscan) 0.4 mg ONCE PRN IV Stress Test 02/20/20 15:00 05/20/20 14:59 Risperidone (RisperDAL) 6 mg BEDTIME ORAL 02/19/20 21:00 04/04/20 20:59 02/20/20 20:53 Sodium Chloride 1,000 ml @ 70 mls/hr [id number] IV 02/18/20 22:30 03/19/20 22:29 02/22/20 03:40 Tramadol HCl (Ultram) 50 mg Q8HR PRN ORAL Severe Pain (Pain Scale 7-10) 02/18/20 22:30 02/25/20 22:29 Zolpidem Tartrate (Ambien) 5 mg HSPRN PRN ORAL Insomnia 02/18/20 22:30 02/25/20 22:29 Last 24 Hour Vital Signs Date Time Temp Pulse Resp B/P (MAP) Pulse Ox O2 Delivery O2 Flow Rate FiO2 02/22/20 04:00 64 02/22/20 04:00 97.6 57 18 159/66 (97) 99 02/22/20 00:00 97.4 69 18 145/67 (93) 97 02/22/20 00:00 60 02/21/20 21:00 Room Air 02/21/20 20:00 97.7 63 20 144/53 (83) 96 02/21/20 20:00 65 02/21/20 16:04 97.9 65 18 142/67 (92) 96 02/21/20 16:00 65 02/21/20 12:00 54 02/21/20 12:00 98.6 59 19 168/55 (92) 99 02/21/20 09:00 Room Air 02/21/20 08:00 55 02/21/20 08:00 75 169/87 02/21/20 07:54 98.8 75 19 169/87 (114) 99 02/21/20 04:00 97.5 53 18 148/63 (91) 97 02/21/20 04:00 55 02/21/20 00:00 55 02/21/20 00:00 96.9 64 16 118/57 (77) 96 02/20/20 21:00 Room Air 02/20/20 20:53 64 125/74 02/20/20 20:00 72 02/20/20 20:00 98.8 64 16 151/68 (95) 96 02/20/20 16:04 53 02/20/20 16:00 98.3 51 16 155/61 (92) 94 02/20/20 12:00 59 02/20/20 12:00 97.7 76 18 156/86 (109) 94 02/20/20 09:00 Room Air 02/20/20 08:17 84 149/65 02/20/20 08:00 98.9 84 18 149/65 (93) 94 02/20/20 08:00 77 Intake and Output 02/21/20 02/22/20 18:59 06:59 Intake Total 1440 ml 480 ml Output Total 1200 ml 1200 ml Balance 240 ml -720 ml Intake Oral 1440 ml 480 ml Output Urine Total 1200 ml 1200 ml # Voids 1 # Bowel Movements 1 Labs Test 02/19/20 12:05 02/20/20 04:20 02/21/20 06:10 Troponin I 0.118 ng/mL (0.000-0.056) 0.129 ng/mL (0.000-0.056) White Blood Count 5.7 K/UL (4.8-10.8) 5.5 K/UL (4.8-10.8) Red Blood Count 3.49 M/UL (4.20-5.40) 3.49 M/UL (4.20-5.40) Hemoglobin 11.2 G/DL (12.0-16.0) 11.6 G/DL (12.0-16.0) Hematocrit 34.2 % (37.0-47.0) 35.2 % (37.0-47.0) Mean Corpuscular Volume 98 FL (80-99) 101 FL (80-99) Mean Corpuscular Hemoglobin 32.2 PG (27.0-31.0) 33.2 PG (27.0-31.0) Mean Corpuscular Hemoglobin Concent 32.8 G/DL (32.0-36.0) 32.9 G/DL (32.0-36.0) Red Cell Distribution Width 12.2 % (11.6-14.8) 12.2 % (11.6-14.8) Platelet Count 138 K/UL (150-450) 145 K/UL (150-450) Mean Platelet Volume 7.8 FL (6.5-10.1) 8.4 FL (6.5-10.1) Neutrophils (%) (Auto) 42.4 % (45.0-75.0) 50.3 % (45.0-75.0) Lymphocytes (%) (Auto) 44.2 % (20.0-45.0) 34.9 % (20.0-45.0) Monocytes (%) (Auto) 10.8 % (1.0-10.0) 12.2 % (1.0-10.0) Eosinophils (%) (Auto) 1.6 % (0.0-3.0) 1.6 % (0.0-3.0) Basophils (%) (Auto) 1.1 % (0.0-2.0) 1.0 % (0.0-2.0) Sodium Level 141 MMOL/L (136-145) 142 MMOL/L (136-145) Potassium Level 4.1 MMOL/L (3.5-5.1) 3.7 MMOL/L (3.5-5.1) Chloride Level 109 MMOL/L (98-107) 108 MMOL/L (98-107) Carbon Dioxide Level 29 MMOL/L (21-32) 28 MMOL/L (21-32) Anion Gap 3 mmol/L (5-15) 6 mmol/L (5-15) Blood Urea Nitrogen 12 mg/dL (7-18) 8 mg/dL (7-18) Creatinine 0.9 MG/DL (0.55-1.30) 0.9 MG/DL (0.55-1.30) Estimat Glomerular Filtration Rate > 60 mL/min (>60) > 60 mL/min (>60) Glucose Level 80 MG/DL (74-106) 85 MG/DL (74-106) Calcium Level 8.1 MG/DL (8.5-10.1) 8.0 MG/DL (8.5-10.1) Height (Feet): 5 Height (Inches): 5.00 Weight (Pounds): 205 Objective Physical Exam Vitals: reviewed, normal General: normal inspection, alert, GCS 15, Chronically Ill Head: atraumatic, normal rom Resp: normal inspection, lungs clear, normal breath sounds Cardiovascular: regular rate, rhythm, no edema Gi: normal inspection, normal bowel sounds, non tender, soft, no guarding, no hernia Gu: no CVA tenderness Msk: normal inspection, back normal, normal range of motion Neurologic: bilateral upper extremity pill-rolling tremor Psychiatric: mood/affect normal, other - Some delusions Tobin Doll MD Feb 22, 2020 06:55
--- NOTE | 2020-02-22 07:36 | NUR ---
NURSE HAND-OFF REPORT: Important Events on Shift: Patient refused meds at 21:00. Patient Status: No acute distress Diet: Regular thin liquids Pending Orders: Pending Results/Labs: Pending MD notification: Latest Vital Signs: Temperature 97.6 , Pulse 64 , B/P 159 /66 , Respiratory Rate 18 , O2 SAT 99 , Room Air, O2 Flow Rate . Vital Sign Comment: EKG Rhythm: Sinus Rhythm Rhythm change?: N Notified?: Bonita Soni MD Response: Latest Ricks Fall Score: 60 Fall Risk: High Risk Safety Measures: Call light Within Reach, Bed Alarm Zone 2, Side Rails Side Rails x3, Bed position Low and Locked. Fall Precautions: Yellow Socks Yellow Gown Door Sign Patient Fall Education Report given to Olivia MCCOY.
--- NOTE | 2020-02-22 07:50 | NUR ---
NURSE NOTES: Received report. Pt is AOx1, pt is on room air, no sign of sob or resp distress. 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 Patient denies chest pain. Left AC 20G IV site is c/d/i and running NS @ 70ml/hr as ordered. Limon cath is noted and draining to gravity. Bed is low and locked, side rails up x3 top two side rails are padded. Seizure and fall precautions maintained. Will continue plan of care.
[2020-02-22] MEDS: Heparin 5000 units/ml inj SUBQ SCH ×2 (09:09→21:17)
[2020-02-22] MEDS: Aspirin EC 81mg tab ORAL SCH (09:09)
[2020-02-22] MEDS: Depakote ER 500mg tab ORAL SCH ×3 (09:10→21:14)
[2020-02-22] MEDS: Dorzolamide 2% 10ml Btl BOTH EYES SCH ×3 (09:12→17:49)
--- NOTE | 2020-02-22 09:29 | General Progress Note ---
Subjective Constitutional: Reports: weakness Allergies: Coded Allergies: No Known Allergies (Unverified , 02/24/19) All Systems: reviewed and negative except above Subjective calm in bed Objective Last 24 Hour Vital Signs Date Time Temp Pulse Resp B/P (MAP) Pulse Ox O2 Delivery O2 Flow Rate FiO2 02/22/20 09:00 71 147/83 02/22/20 08:03 97.5 71 18 147/83 (104) 95 02/22/20 04:00 64 02/22/20 04:00 97.6 57 18 159/66 (97) 99 02/22/20 00:00 97.4 69 18 145/67 (93) 97 02/22/20 00:00 60 02/21/20 21:00 Room Air 02/21/20 20:00 97.7 63 20 144/53 (83) 96 02/21/20 20:00 65 02/21/20 16:04 97.9 65 18 142/67 (92) 96 02/21/20 16:00 65 02/21/20 12:00 54 02/21/20 12:00 98.6 59 19 168/55 (92) 99 Intake and Output 02/21/20 02/22/20 19:00 07:00 Intake Total 1440 ml 480 ml Output Total 1200 ml 1200 ml Balance 240 ml -720 ml Intake Oral 1440 ml 480 ml Output Urine Total 1200 ml 1200 ml # Voids 1 # Bowel Movements 1 Height (Feet): 5 Height (Inches): 5.00 Weight (Pounds): 205 General Appearance: lethargic EENT: normal ENT inspection Neck: normal alignment Cardiovascular: normal peripheral pulses, normal rate, regular rhythm Respiratory/Chest: chest wall non-tender, lungs clear, normal breath sounds Abdomen: normal bowel sounds, non tender, soft Extremities: normal inspection Edema: no edema noted Arm (L), no edema noted Arm (R), no edema noted Leg (L), no edema noted Leg (R), no edema noted Pedal (L), no edema noted Pedal (R), no edema noted Generalized Neurologic: motor weakness Skin: normal pigmentation, warm/dry Assessment/Plan Problem List: (1) Seizure ICD Codes: R56.9 - Unspecified convulsions SNOMED: 81614197 (2) Tremor ICD Codes: R25.1 - Tremor, unspecified SNOMED: 31147369 (3) Malnutrition ICD Codes: E46 - Unspecified protein-calorie malnutrition SNOMED: 25327070 (4) Anemia ICD Codes: D64.9 - Anemia, unspecified SNOMED: 401827345 (5) Elevated troponin ICD Codes: R77.8 - Other specified abnormalities of plasma proteins SNOMED: 196299759, 388273194, 982721512 (6) Gammopathy ICD Codes: D47.2 - Monoclonal gammopathy SNOMED: 230799098 (7) Schizophrenia ICD Codes: F20.9 - Schizophrenia, unspecified SNOMED: 20636406 (8) Generalized weakness ICD Codes: R53.1 - Weakness SNOMED: 33178179 Status: unchanged Assessment/Plan: bp seizure pain control cardio heme f/u cbc bmp am stress test bone marrow bx jaimeu Partha Dobson DO Feb 22, 2020 09:29
[2020-02-22 10:06] LABS: BASOPHILS % (AUTO) 1.3 % (0.0-2.0); EOSINOPHILS % (AUTO) 1.5 % (0.0-3.0); HEMATOCRIT 38.5 % (37.0-47.0); HEMOGLOBIN 12.3 G/DL (12.0-16.0); LYMPHOCYTES % (AUTO) 28.3 % (20.0-45.0); MEAN CORPUSCULAR VOLUME 101 FL (80-99); MONOCYTES % (AUTO) 11.4 % (1.0-10.0); NEUTROPHILS % (AUTO) 57.6 % (45.0-75.0); PLATELET COUNT 142 K/UL (150-450); RED BLOOD COUNT 3.81 M/UL (4.20-5.40); RED CELL DISTRIBUTION WIDTH 12.4 % (11.6-14.8); WHITE BLOOD COUNT 6.7 K/UL (4.8-10.8)
[2020-02-22 10:30] LABS: ANION GAP 7 mmol/L (5-15); BLOOD UREA NITROGEN 9 mg/dL (7-18); CALCIUM 8.2 MG/DL (8.5-10.1); CARBON DIOXIDE 27 MMOL/L (21-32); CHLORIDE 106 MMOL/L (98-107); CREATININE 0.7 MG/DL (0.55-1.30); POTASSIUM 3.9 MMOL/L (3.5-5.1); SODIUM 140 MMOL/L (136-145)
--- NOTE | 2020-02-22 10:39 | Cardiac Electrophysiology PN ---
Assessment/Plan Assessment/Plan 1. Troponin elevation. She has 4 elevated troponin all low and flat at around 0.12 but does not have renal failure. Denies any chest pain. EKG nonischemic and and echocardiogram showed Nl EF. On aspirin, Lopressor 25 bid and Lipitor 40 daily Had stress test today. Results pending 2. Hypertension. On metoprolol 25 mg b.i.d. 3. History of seizures, on Keppra. 4. History of schizophrenia. 5. History of COVID positive in the past. 6. Monoclonal gammopathy with elevated IgG of more than 3000. Further evaluation by Dr. Doll. IgG, IgM, and IgA is pending. May need bone marrow biopsy. MYRNA RN and Dr Chakraborty Subjective Subjective No events. No CP or SOB. Had 2 physician consent for stress test that was done today Objective Last 24 Hour Vital Signs Date Time Temp Pulse Resp B/P (MAP) Pulse Ox O2 Delivery O2 Flow Rate FiO2 02/22/20 09:00 Room Air 02/22/20 09:00 71 147/83 02/22/20 08:03 97.5 71 18 147/83 (104) 95 02/22/20 08:00 56 02/22/20 04:00 64 02/22/20 04:00 97.6 57 18 159/66 (97) 99 02/22/20 00:00 97.4 69 18 145/67 (93) 97 02/22/20 00:00 60 02/21/20 21:00 Room Air 02/21/20 20:00 97.7 63 20 144/53 (83) 96 02/21/20 20:00 65 02/21/20 16:04 97.9 65 18 142/67 (92) 96 02/21/20 16:00 65 02/21/20 12:00 54 02/21/20 12:00 98.6 59 19 168/55 (92) 99 Intake and Output 02/21/20 02/22/20 19:00 07:00 Intake Total 1440 ml 480 ml Output Total 1200 ml 1200 ml Balance 240 ml -720 ml Intake Oral 1440 ml 480 ml Output Urine Total 1200 ml 1200 ml # Voids 1 # Bowel Movements 1 Laboratory Tests Test 02/22/20 09:50 White Blood Count 6.7 K/UL (4.8-10.8) Red Blood Count 3.81 M/UL (4.20-5.40) L Hemoglobin 12.3 G/DL (12.0-16.0) Hematocrit 38.5 % (37.0-47.0) Mean Corpuscular Volume 101 FL (80-99) H Mean Corpuscular Hemoglobin 32.1 PG (27.0-31.0) H Mean Corpuscular Hemoglobin Concent 31.8 G/DL (32.0-36.0) L Red Cell Distribution Width 12.4 % (11.6-14.8) Platelet Count 142 K/UL (150-450) L Mean Platelet Volume 8.0 FL (6.5-10.1) Neutrophils (%) (Auto) 57.6 % (45.0-75.0) Lymphocytes (%) (Auto) 28.3 % (20.0-45.0) Monocytes (%) (Auto) 11.4 % (1.0-10.0) H Eosinophils (%) (Auto) 1.5 % (0.0-3.0) Basophils (%) (Auto) 1.3 % (0.0-2.0) Sodium Level 140 MMOL/L (136-145) Potassium Level 3.9 MMOL/L (3.5-5.1) Chloride Level 106 MMOL/L (98-107) Carbon Dioxide Level 27 MMOL/L (21-32) Anion Gap 7 mmol/L (5-15) Blood Urea Nitrogen 9 mg/dL (7-18) Creatinine 0.7 MG/DL (0.55-1.30) Estimat Glomerular Filtration Rate > 60 mL/min (>60) Glucose Level 73 MG/DL (74-106) L Calcium Level 8.2 MG/DL (8.5-10.1) L Objective HEAD AND NECK: No JVD. LUNGS: Clear. CARDIOVASCULAR: Regular S1 and S2 with no gallop or murmur. ABDOMEN: Soft. EXTREMITIES: No pitting edema. Compa Anthony MD Feb 22, 2020 10:39
--- NOTE | 2020-02-22 11:05 | NUR ---
RD ASSESSMENT & RECOMMENDATIONS SEE CARE ACTIVITY FOR COMPLETE ASSESSMENT DAILY ESTIMATED NEEDS: Needs based on Wound/ 65kg abw 25-30 kcals/kg 5558-3000 total kcals 1.25-1.5 g protein/kg 81-97 g total protein 25-30 mL/kg 6556-2072 total fluid mLs NUTRITION DIAGNOSIS: Increased protein and micronutrients intake needs R/T wound healing as evidenced by admitted w/ stage 2 sacral wound. CURRENT DIET:REGULAR PO DIET RECOMMENDATIONS: REGULAR/ texture as tolerated ADDITIONAL RECOMMENDATIONS: * Calibrated bedscale wt * Wound healing: Continue MVI, add Vit C 250mg QD * Monitor FBGs closely, on the lower side -> monitor need to add D5 to IVF * Monitor for continued fair-good Po intake
--- NOTE | 2020-02-22 11:06 | NUR ---
CHARGE NURSE NOTES: Patient started screaming hysterically about other people in the room staring at her. Pt is unable to understand requests to stop yelling. Haldol given per eMAR for agitation.
--- NOTE | 2020-02-22 13:00 | NUR ---
NURSE NOTES STRESS TEST SHOWS NO ISCHEMIC CHANGES, PT DENIES CHEST PAIN
[2020-02-22 13:28] LABS: INR 1.1 (0.9-1.1)
[2020-02-22] MEDS ORDERED: LORazepam Inj 2mg/ml 1ml IV ONE (14:00)
--- NOTE | 2020-02-22 15:00 | NUR ---
NURSE NOTES PT TOLERATED bone marrow biopsy and vital signs are being monitored closely.
--- NOTE | 2020-02-22 15:02 | Pre-Procedure Note/Attestation ---
Pre-Procedure Note/Attestation Complete Prior to Procedure Planned Procedure: not applicable Procedure Narrative: bone marrow biopsy Indications for Procedure Pre-Operative Diagnosis: thrombocytopenia Attestation I attest that I discussed the nature of the procedure; its benefits; risks and complications; and alternatives (and the risks and benefits of such alternatives), prior to the procedure, with the patient (or the patient's legal telephone service representative). I attest that, if there was a reasonable possibility of needing a blood transfusion, the patient (or the patient's legal telephone service representative) was given the [facility] standardized written summary, pursuant to the [place] Blood Safety Act ([place] Health and Safety Code # 1645, as amended). I attest that I re-evaluated the patient just prior to the surgery and that there has been no change in the patient's H&P, except as documented below: Consent provided by state conservator Dominick Newell MD Feb 22, 2020 15:02
--- NOTE | 2020-02-22 15:03 | Brief Operative Note ---
Immediate Post Operative Note Operative Note Pre-op Diagnosis: thrombocytopenia Procedure: bone marrow bx Post-op Diagnosis: same as pre-op Surgeon: Simi Man Anesthesia: local Specimen: yes - 10 ml aspirate, single core Complications: none Fluids: none Implant(s) used?: No Dominick Man MD Feb 22, 2020 15:03
--- NOTE | 2020-02-22 15:12 | NUR ---
CASE MANAGEMENT:REVIEW 02/22/20 SI: NSTEMI. SCHIZOPHRENIA MONOCLONAL GAMMOPATHY 98.8 86 18 134/86 97% ON RA PLT-142 LAST TROPONIN(+) 0.129 IS: IV LEXISCAN X1 IV KEPPRA Q8HR IVF@70/HR ASA PO QD RISPERDAL PO QHS LOPRESSOR PO Q12 HEPARIN SQ Q12 DEPAKOTE PO Q12 : TELEMETRY STATUS DCP: FROM [facility]: CT GUIDED BONE MARROW BIOPSY TODAY
--- NOTE | 2020-02-22 15:25 | NUR ---
DISCHARGE PLANNING F/U CALL PLACED TO [facility] COORDINATOR, ZELDA. PER ZELDA HE NEVER RECEIVED A REFERRAL FAXED CLINICALS TO [facility]; [phone]
--- NOTE | 2020-02-22 15:25 | Diagnostic Imaging Report ---
Indications: Chest pain Technique: Single day single isotope protocol utilized. Initially, resting images obtained using IV administration 10.4 millicuries 99M technetium Myoview. Subsequently, patient underwent lexiscan stress testing. See cardiology report for details. During Lexiscan infusion, IV administration 31.3 mCi 99 M technetium Myoview. SPECT and planar images obtained. SPECT images gated to 8 phases of the cardiac cycle were also obtained, and reformatted into cine images for evaluation of ejection fraction. Comparison: none Findings: Per cardiology report, patient experienced no symptoms during infusion. Per cardiology report, resting EKG demonstrates normal sinus rhythm. No ST changes seen during the infusion. Imaging demonstrates normal poststress perfusion, no fixed nor reversible perfusion defects. Calculated post stress ejection fraction 69%. No focal wall motion abnormality Impression: Nonischemic clinical response to pharmacologic stress, per cardiology report Nonischemic electrocardiographic response to pharmacologic stress, per cardiology report No imaging findings to suggest ischemia, at level of stress achieved. Calculated post stress ejection fraction 69%
--- NOTE | 2020-02-22 16:47 | Diagnostic Imaging Report ---
Indication: Thrombocytopenia Technique: Patient conservator provided consent. With the patient prone, localizing spiral acquisitions obtained through the pelvis. Intended puncture site sterilely prepped and draped. Local anesthesia functional lidocaine. The On Control device was directed to the cortex of the posterior left iliac bone. CT slices confirmed satisfactory position of the needle. The needle was then advanced into the marrow space. 10 mL of bone marrow then aspirated after the stylette was removed. A cannula was then drilled through the marrow space and removed. The core specimen was extracted and given to pathology. Follow-up CT slices obtained, demonstrating no evidence of complication. The patient tolerated the procedure well, without immediate complication. . Total dose length product 871 mGycm. CTDIvol(s) 11, 12, 12, 12, 12, 12, T12 mGy. Radiation dose was minimized using automated exposure control Comparison: none Findings: As above Impression: Apparently successful bone marrow biopsy under CT guidance, as described The CT scanner at [facility] is accredited by the [employer] and the scans are performed using protocols designed to limit radiation exposure to as low as reasonably achievable to attain images of sufficient resolution adequate for diagnostic evaluation.
--- NOTE | 2020-02-22 18:29 | Psychiatric Progress Note ---
Psychiatry Progress Note Psychiatry Progress Note Subjective the pt is the same complaint with meds Medications Current Medications Medications (Trade) Dose Ordered Sig/Lisha Route PRN Reason Start Time Stop Time Status Last Admin Dose Admin Acetaminophen (Tylenol) 650 mg Q6HR PRN ORAL Mild Pain/Fever 101.0 02/18/20 22:30 03/19/20 22:29 Aspirin (Ecotrin) 81 mg DAILY ORAL 02/21/20 09:00 04/06/20 08:59 02/22/20 09:09 Atorvastatin Calcium (Lipitor) 40 mg BEDTIME ORAL 02/20/20 21:00 05/20/20 20:59 02/20/20 20:54 Clonidine HCl (Catapres Tab) 0.1 mg Q4H PRN ORAL sbp>170 02/19/20 12:00 05/19/20 11:59 Divalproex Sodium (Depakote ER) 1,000 mg EVERY 12 HOURS ORAL 02/19/20 00:00 03/20/20 00:00 02/22/20 09:10 Dorzolamide HCl (Trusopt) 1 drop TID BOTH EYES 02/19/20 09:00 03/20/20 08:59 02/22/20 13:13 Ferrous Sulfate (Feosol) 325 mg DAILY ORAL 02/19/20 09:00 05/19/20 08:59 02/22/20 09:12 Haloperidol Lactate (Haldol) 5 mg Q6H PRN IM Agitation 02/19/20 15:30 04/04/20 15:29 02/22/20 11:05 Heparin Sodium (Porcine) (Heparin 5000 units/ml) 5,000 units EVERY 12 HOURS SUBQ 02/19/20 09:00 04/04/20 08:59 02/22/20 09:09 Levetiracetam 750 mg/Sodium Chloride 117.5 ml @ 470 mls/hr Q8HR IV 02/19/20 22:00 04/04/20 21:59 02/22/20 13:13 Metoprolol Tartrate (Lopressor) 25 mg EVERY 12 HOURS ORAL 02/19/20 21:00 05/19/20 20:59 02/21/20 08:00 Morphine Sulfate (Morphine Sulfate) 1 mg Q8HR PRN IVP Moderate Pain (Pain Scale 4-6) 02/18/20 22:30 02/25/20 22:29 Multivitamins (Multivitamins) 1 tab DAILY ORAL 02/19/20 09:00 03/20/20 08:59 02/22/20 09:10 Ondansetron HCl (Zofran) 4 mg Q6H PRN IVP Nausea & Vomiting 02/18/20 22:30 03/19/20 22:29 Regadenoson (Lexiscan) 0.4 mg ONCE PRN IV Stress Test 02/20/20 15:00 05/20/20 14:59 02/22/20 10:21 Risperidone (RisperDAL) 6 mg BEDTIME ORAL 02/19/20 21:00 04/04/20 20:59 02/20/20 20:53 Sodium Chloride 1,000 ml @ 70 mls/hr [id number] IV 02/18/20 22:30 03/19/20 22:29 02/22/20 03:40 Tramadol HCl (Ultram) 50 mg Q8HR PRN ORAL Severe Pain (Pain Scale 7-10) 02/18/20 22:30 02/25/20 22:29 Zolpidem Tartrate (Ambien) 5 mg HSPRN PRN ORAL Insomnia 02/18/20 22:30 02/25/20 22:29 Neurological/Psychiatric: Reports: anxiety, depressed, emotional problems; Denies: no symptoms, headache, numbness, paresthesia, pre-existing deficit, seizure, tingling, tremors, weakness, other Allergies: Coded Allergies: No Known Allergies (Unverified , 02/24/19) Objective Data Height (Feet): 5 Height (Inches): 5.00 Weight (Pounds): 205 General Appearance: lethargic Additional Comments: alert, oriented times self, place. Mood is anxious. Affect is blunted, congruent with mood. Thought process is concrete. Thought content, no suicidal or homicidal ideation. Cognition is intact. Insight and judgment is fair. Assessment/Plan [place] I: PLAN: 1. Continue the current psychotropic medication. 2. Decrease the risperidone to 6 mg at bedtime. 3. Haldol IM as needed. 4. Provide the patient with reality orientation. Status: unchanged Status Narrative PLAN: 1. Continue the current psychotropic medication. 2. Decrease the risperidone to 6 mg at bedtime. 3. Haldol IM as needed. 4. Provide the patient with reality orientation. Assessment/Plan: PLAN: 1. Continue the current psychotropic medication. 2. Decrease the risperidone to 6 mg at bedtime. 3. Haldol IM as needed. 4. Provide the patient with reality orientation. Yonis Escalante MD Feb 22, 2020 18:29
--- NOTE | 2020-02-22 19:30 | NUR ---
NURSE NOTES: Patient received from NADINE Baker. Patient is currently in bed and asleep. Patient has a miller 16 ir[place]i, patent and well draining. Patient as a 22 gauge IV on her left hand patent and flushed. Patient is on room air satting at 95% with no signs of distress. Patient is on seizure precaution, bed rails are padded. Bed is in the lowest position, call light within reach. Will continue to monitor.
[2020-02-22] MEDS: Atorvastatin 20mg tab ORAL SCH ×2 (21:00→21:13)
--- NOTE | 2020-02-22 21:20 | NUR ---
NURSE NOTES: Patient asleep but arousable to pain. Explained to her that she needs her medication but continued to ignore me and went back to sleep. Tried giving medication multiple times.
[2020-02-23] VITALS (8 sets, daily range): BP systolic 124–189; BP diastolic 53–81
[2020-02-23] MEDS: levETIRAcetam 750 MG in NS 110 ML IV SCH ×2 (06:11→14:17)
--- NOTE | 2020-02-23 06:32 | Hematology/Onc Progress Note ---
Assessment/Plan Assessment/Plan Assessment and Recs # Monoclonal gammopathy -- elevated IGG >3000 --> will order spep and igg, igm, iga--> igg 2721 --> will lauri sierra for potential bone marrow biopsy>requires 2 MD consent, have lauri Rn --> smear has been ordered as well --> will follow w/u --> 2MD consent required as patient has no decision maker, I have given my consent --> 01/21 ct guided biopsy was completed, bone marrow # Anemia due to chronic disease --> anemia panel to order --> transfuse as needed --> also low plts --> hgb 10->11.6 # Thrombocytopenia --> acute onset --> plt 167-->145 --> likely due to above # Elevated trop --> per cards, downtrending # Schizphrenia --> per psych # Dvt ppx scds ==> hep of if plt >75k Appreciate consultation and lauri RN Subjective HEENT: Denies: no symptoms, eye pain, blurred vision, tearing, double vision, ear pain, ear discharge, nose pain, nose congestion, throat pain, throat swelling, mouth pain, mouth swelling, other Cardiovascular: Denies: no symptoms, chest pain, edema, irregular heart rate, lightheadedness, palpitations, syncope, other Gastrointestinal/Abdominal: Denies: no symptoms, abdomen distended, abdominal pain, black stools, tarry stools, blood in stool, constipated, diarrhea, difficulty swallowing, nausea, poor appetite, poor fluid intake, rectal bleeding, vomiting, other Genitourinary: Denies: no symptoms, burning, discharge, frequency, flank pain, hematuria, incontinence, pain, urgency, other Neurologic/Psychiatric: Denies: no symptoms, anxiety, depressed, emotional problems, headache, numbness, paresthesia, pre-existing deficit, seizure, tingling, tremors, weakness, other Allergies: Coded Allergies: No Known Allergies (Unverified , 02/24/19) Subjective 02/20 for kendy [facility]u consult, lauri pcp, no bleeding, plt 140 range 02/21 Ra and on fluids, lauri Rn in am, for placement, and stress test/biospy, have lauri sierra 02/22 labs reviewed, on fluids, placement for [facility] rehab, biopsy done yest Objective Objective Current Medications Medications (Trade) Dose Ordered Sig/Lisha Route PRN Reason Start Time Stop Time Status Last Admin Dose Admin Acetaminophen (Tylenol) 650 mg Q6HR PRN ORAL Mild Pain/Fever 101.0 02/18/20 22:30 03/19/20 22:29 Aspirin (Ecotrin) 81 mg DAILY ORAL 02/21/20 09:00 04/06/20 08:59 02/22/20 09:09 Atorvastatin Calcium (Lipitor) 40 mg BEDTIME ORAL 02/20/20 21:00 05/20/20 20:59 02/20/20 20:54 Clonidine HCl (Catapres Tab) 0.1 mg Q4H PRN ORAL sbp>170 02/19/20 12:00 05/19/20 11:59 Divalproex Sodium (Depakote ER) 1,000 mg EVERY 12 HOURS ORAL 02/19/20 00:00 03/20/20 00:00 02/22/20 09:10 Dorzolamide HCl (Trusopt) 1 drop TID BOTH EYES 02/19/20 09:00 03/20/20 08:59 02/22/20 13:13 Ferrous Sulfate (Feosol) 325 mg DAILY ORAL 02/19/20 09:00 05/19/20 08:59 02/22/20 09:12 Haloperidol Lactate (Haldol) 5 mg Q6H PRN IM Agitation 02/19/20 15:30 04/04/20 15:29 02/22/20 11:05 Heparin Sodium (Porcine) (Heparin 5000 units/ml) 5,000 units EVERY 12 HOURS SUBQ 02/19/20 09:00 04/04/20 08:59 02/22/20 21:17 Levetiracetam 750 mg/Sodium Chloride 117.5 ml @ 470 mls/hr Q8HR IV 02/19/20 22:00 04/04/20 21:59 02/23/20 06:11 Metoprolol Tartrate (Lopressor) 25 mg EVERY 12 HOURS ORAL 02/19/20 21:00 05/19/20 20:59 02/21/20 08:00 Morphine Sulfate (Morphine Sulfate) 1 mg Q8HR PRN IVP Moderate Pain (Pain Scale 4-6) 02/18/20 22:30 02/25/20 22:29 Multivitamins (Multivitamins) 1 tab DAILY ORAL 02/19/20 09:00 03/20/20 08:59 02/22/20 09:10 Ondansetron HCl (Zofran) 4 mg Q6H PRN IVP Nausea & Vomiting 02/18/20 22:30 03/19/20 22:29 Regadenoson (Lexiscan) 0.4 mg ONCE PRN IV Stress Test 02/20/20 15:00 05/20/20 14:59 02/22/20 10:21 Risperidone (RisperDAL) 6 mg BEDTIME ORAL 02/19/20 21:00 04/04/20 20:59 02/20/20 20:53 Sodium Chloride 1,000 ml @ 70 mls/hr [id number] IV 02/18/20 22:30 03/19/20 22:29 02/23/20 03:09 Tramadol HCl (Ultram) 50 mg Q8HR PRN ORAL Severe Pain (Pain Scale 7-10) 02/18/20 22:30 02/25/20 22:29 Zolpidem Tartrate (Ambien) 5 mg HSPRN PRN ORAL Insomnia 02/18/20 22:30 02/25/20 22:29 Last 24 Hour Vital Signs Date Time Temp Pulse Resp B/P (MAP) Pulse Ox O2 Delivery O2 Flow Rate FiO2 02/23/20 00:00 59 02/23/20 00:00 98.6 59 18 140/61 (87) 94 02/22/20 21:00 Room Air 02/22/20 20:00 98.1 59 16 127/55 (79) 99 02/22/20 20:00 61 02/22/20 18:12 97.7 55 16 123/57 (79) 96 02/22/20 16:45 97.7 57 17 130/54 (79) 94 02/22/20 16:36 97.7 60 17 127/56 (79) 94 02/22/20 16:00 61 02/22/20 15:55 97.7 60 18 135/61 (85) 94 02/22/20 15:47 98.6 59 17 139/75 (96) 94 02/22/20 15:32 97.7 60 18 135/61 (85) 94 02/22/20 15:02 79 15 120/88 97 02/22/20 14:29 72 16 122/79 94 02/22/20 12:00 98.8 86 18 134/86 (102) 94 02/22/20 12:00 70 02/22/20 09:00 Room Air 02/22/20 09:00 71 147/83 02/22/20 08:03 97.5 71 18 147/83 (104) 95 02/22/20 08:00 56 02/22/20 04:00 64 02/22/20 04:00 97.6 57 18 159/66 (97) 99 02/22/20 00:00 97.4 69 18 145/67 (93) 97 02/22/20 00:00 60 02/21/20 21:00 Room Air 02/21/20 20:00 97.7 63 20 144/53 (83) 96 02/21/20 20:00 65 02/21/20 16:04 97.9 65 18 142/67 (92) 96 02/21/20 16:00 65 02/21/20 12:00 54 02/21/20 12:00 98.6 59 19 168/55 (92) 99 02/21/20 09:00 Room Air 02/21/20 08:00 55 02/21/20 08:00 75 169/87 02/21/20 07:54 98.8 75 19 169/87 (114) 99 Labs Test 02/21/20 06:10 02/22/20 09:50 02/22/20 12:50 White Blood Count 5.5 K/UL (4.8-10.8) 6.7 K/UL (4.8-10.8) Red Blood Count 3.49 M/UL (4.20-5.40) 3.81 M/UL (4.20-5.40) Hemoglobin 11.6 G/DL (12.0-16.0) 12.3 G/DL (12.0-16.0) Hematocrit 35.2 % (37.0-47.0) 38.5 % (37.0-47.0) Mean Corpuscular Volume 101 FL (80-99) 101 FL (80-99) Mean Corpuscular Hemoglobin 33.2 PG (27.0-31.0) 32.1 PG (27.0-31.0) Mean Corpuscular Hemoglobin Concent 32.9 G/DL (32.0-36.0) 31.8 G/DL (32.0-36.0) Red Cell Distribution Width 12.2 % (11.6-14.8) 12.4 % (11.6-14.8) Platelet Count 145 K/UL (150-450) 142 K/UL (150-450) Mean Platelet Volume 8.4 FL (6.5-10.1) 8.0 FL (6.5-10.1) Neutrophils (%) (Auto) 50.3 % (45.0-75.0) 57.6 % (45.0-75.0) Lymphocytes (%) (Auto) 34.9 % (20.0-45.0) 28.3 % (20.0-45.0) Monocytes (%) (Auto) 12.2 % (1.0-10.0) 11.4 % (1.0-10.0) Eosinophils (%) (Auto) 1.6 % (0.0-3.0) 1.5 % (0.0-3.0) Basophils (%) (Auto) 1.0 % (0.0-2.0) 1.3 % (0.0-2.0) Sodium Level 142 MMOL/L (136-145) 140 MMOL/L (136-145) Potassium Level 3.7 MMOL/L (3.5-5.1) 3.9 MMOL/L (3.5-5.1) Chloride Level 108 MMOL/L (98-107) 106 MMOL/L (98-107) Carbon Dioxide Level 28 MMOL/L (21-32) 27 MMOL/L (21-32) Anion Gap 6 mmol/L (5-15) 7 mmol/L (5-15) Blood Urea Nitrogen 8 mg/dL (7-18) 9 mg/dL (7-18) Creatinine 0.9 MG/DL (0.55-1.30) 0.7 MG/DL (0.55-1.30) Estimat Glomerular Filtration Rate > 60 mL/min (>60) > 60 mL/min (>60) Glucose Level 85 MG/DL (74-106) 73 MG/DL (74-106) Calcium Level 8.0 MG/DL (8.5-10.1) 8.2 MG/DL (8.5-10.1) Prothrombin Time 11.8 SEC (9.30-11.50) Prothromb Time International Ratio 1.1 (0.9-1.1) Height (Feet): 5 Height (Inches): 5.00 Weight (Pounds): 205 Objective Physical Exam Vitals: reviewed, normal General: normal inspection, alert, GCS 15, Chronically Ill Head: atraumatic, normal rom Resp: normal inspection, lungs clear, normal breath sounds Cardiovascular: regular rate, rhythm, no edema Gi: normal inspection, normal bowel sounds, non tender, soft, no guarding, no hernia Gu: no CVA tenderness Msk: normal inspection, back normal, normal range of motion Neurologic: bilateral upper extremity pill-rolling tremor Psychiatric: mood/affect normal, other - Some delusions Tobin Doll MD Feb 23, 2020 06:32
[2020-02-23 07:04] LABS: BASOPHILS % (AUTO) 3.6 % (0.0-2.0); EOSINOPHILS % (AUTO) 1.8 % (0.0-3.0); HEMATOCRIT 38.9 % (37.0-47.0); HEMOGLOBIN 12.1 G/DL (12.0-16.0); LYMPHOCYTES % (AUTO) 22.9 % (20.0-45.0); MEAN CORPUSCULAR VOLUME 103 FL (80-99); NEUTROPHILS % (AUTO) 56.7 % (45.0-75.0); PLATELET COUNT 123 K/UL (150-450); RED BLOOD COUNT 3.77 M/UL (4.20-5.40); RED CELL DISTRIBUTION WIDTH 12.3 % (11.6-14.8)
--- NOTE | 2020-02-23 07:20 | NUR ---
NURSE HAND-OFF REPORT: Important Events on Shift:[Patient asleep and did not take PO medication. Tried to give medication, multiple times but ignored me] Patient Status: [Stable] Diet: [Regular diet] Pending Orders: [] Pending Results/Labs:[] Pending MD notification:[] Latest Vital Signs: Temperature 98.4 , Pulse 64 , B/P 145 /65 , Respiratory Rate 18 , O2 SAT 97 , Room Air, O2 Flow Rate . Vital Sign Comment: [] EKG Rhythm: Sinus Rhythm Rhythm change?: Hortencia PEOPLES Notified?: Bonita Soni MD Response: Latest Ricks Fall Score: 60 Fall Risk: High Risk Safety Measures: Call light Within Reach, Bed Alarm Zone 2, Side Rails Side Rails x3, Bed position Low and Locked. Fall Precautions: Yellow Socks Yellow Gown Door Sign Patient Fall Education Report given to [NADINE Lanza].
--- NOTE | 2020-02-23 07:30 | NUR ---
NURSE NOTES: Received pt from NADINE Miranda, pt is sleeping, pt is in RA, no SOB or acute respiratory distress noted. pt is on continues beltran monitoring. pt has intact iv access LH 22G is running well. All needs attended, bed is locked and is in the lowest position, call light within easy reach. will continue to monitor.
[2020-02-23 07:32] LABS: ANION GAP 7 mmol/L (5-15); BLOOD UREA NITROGEN 11 mg/dL (7-18); CALCIUM 8.4 MG/DL (8.5-10.1); CARBON DIOXIDE 27 MMOL/L (21-32); CHLORIDE 105 MMOL/L (98-107); CREATININE 0.9 MG/DL (0.55-1.30); POTASSIUM 3.8 MMOL/L (3.5-5.1); SODIUM 139 MMOL/L (136-145)
--- NOTE | 2020-02-23 08:21 | NUR ---
DISCHARGE PLANNING PATIENT HAS BEEN ACCEPTED TO [facility] PENDING COVID RESULTS ORDER FOR COVID SWAB RECEIVED FROM DR IGLESIAS ORDER ENTERED
[2020-02-23] MEDS: Aspirin EC 81mg tab ORAL SCH (09:09)
[2020-02-23] MEDS: Depakote ER 500mg tab ORAL SCH (09:09)
[2020-02-23] MEDS: Heparin 5000 units/ml inj SUBQ SCH (09:10)
[2020-02-23] MEDS: Dorzolamide 2% 10ml Btl BOTH EYES SCH ×2 (09:10→12:18)
--- NOTE | 2020-02-23 10:20 | NUR ---
NURSE NOTES: covid swab sent to lab, waiting for result.
--- NOTE | 2020-02-23 11:34 | Cardiac Electrophysiology PN ---
Assessment/Plan Assessment/Plan 1. Troponin elevation. She has 4 elevated troponin all low and flat at around 0.12 but does not have renal failure. Denies any chest pain. EKG nonischemic and and echocardiogram showed Nl EF. On aspirin, Lopressor 25 bid and Lipitor 40 daily Stress test was negative. DC to [facility] pending 2. Hypertension. On metoprolol 25 mg b.i.d. Add Norvasc 5 po bid 3. History of seizures, on Keppra. 4. History of schizophrenia. 5. History of COVID positive in the past. 6. Monoclonal gammopathy with elevated IgG of more than 3000. Further evaluation by Dr. Doll. IgG, IgM, and IgA is pending. May need bone marrow biopsy. 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 No CP or SOB. Had stress test yesterday. BP was 190s earlier and got Clonidine Objective Last 24 Hour Vital Signs Date Time Temp Pulse Resp B/P (MAP) Pulse Ox O2 Delivery O2 Flow Rate FiO2 02/23/20 10:00 166/67 (100) 02/23/20 09:09 189/61 02/23/20 09:09 70 189/61 02/23/20 09:00 Room Air 02/23/20 08:00 96.7 70 19 189/61 (103) 98 02/23/20 07:24 58 02/23/20 04:00 98.4 60 18 145/65 (91) 97 02/23/20 04:00 64 02/23/20 00:00 59 02/23/20 00:00 98.6 59 18 140/61 (87) 94 02/22/20 21:00 Room Air 02/22/20 20:00 98.1 59 16 127/55 (79) 99 02/22/20 20:00 61 02/22/20 18:12 97.7 55 16 123/57 (79) 96 02/22/20 16:45 97.7 57 17 130/54 (79) 94 02/22/20 16:36 97.7 60 17 127/56 (79) 94 02/22/20 16:00 61 02/22/20 15:55 97.7 60 18 135/61 (85) 94 02/22/20 15:47 98.6 59 17 139/75 (96) 94 02/22/20 15:32 97.7 60 18 135/61 (85) 94 02/22/20 15:02 79 15 120/88 97 02/22/20 14:29 72 16 122/79 94 02/22/20 12:00 98.8 86 18 134/86 (102) 94 02/22/20 12:00 70 Intake and Output 02/22/20 02/23/20 19:00 07:00 Output Total 1000 ml Balance -1000 ml Output Urine Total 1000 ml Laboratory Tests Test 02/22/20 12:50 02/23/20 05:30 Prothrombin Time 11.8 SEC (9.30-11.50) H Prothromb Time International Ratio 1.1 (0.9-1.1) White Blood Count 5.0 K/UL (4.8-10.8) Red Blood Count 3.77 M/UL (4.20-5.40) L Hemoglobin 12.1 G/DL (12.0-16.0) Hematocrit 38.9 % (37.0-47.0) Mean Corpuscular Volume 103 FL (80-99) H Mean Corpuscular Hemoglobin 32.2 PG (27.0-31.0) H Mean Corpuscular Hemoglobin Concent 31.2 G/DL (32.0-36.0) L Red Cell Distribution Width 12.3 % (11.6-14.8) Platelet Count 123 K/UL (150-450) L Mean Platelet Volume 7.3 FL (6.5-10.1) Neutrophils (%) (Auto) 56.7 % (45.0-75.0) Lymphocytes (%) (Auto) 22.9 % (20.0-45.0) Monocytes (%) (Auto) 15.0 % (1.0-10.0) H Eosinophils (%) (Auto) 1.8 % (0.0-3.0) Basophils (%) (Auto) 3.6 % (0.0-2.0) H Sodium Level 139 MMOL/L (136-145) Potassium Level 3.8 MMOL/L (3.5-5.1) Chloride Level 105 MMOL/L (98-107) Carbon Dioxide Level 27 MMOL/L (21-32) Anion Gap 7 mmol/L (5-15) Blood Urea Nitrogen 11 mg/dL (7-18) Creatinine 0.9 MG/DL (0.55-1.30) Estimat Glomerular Filtration Rate > 60 mL/min (>60) Glucose Level 70 MG/DL (74-106) L Calcium Level 8.4 MG/DL (8.5-10.1) L Objective HEAD AND NECK: No JVD. LUNGS: Clear. CARDIOVASCULAR: Regular S1 and S2 with no gallop or murmur. ABDOMEN: Soft. EXTREMITIES: No pitting edema. Compa Anthony MD Feb 23, 2020 11:34
--- NOTE | 2020-02-23 12:14 | NUR ---
NURSE NOTES: Dr Zazueta visited pt and is aware about HTN, ordered to start amlodipine now and stop iv fluid, noted and carried out. will continue to monitor.
--- NOTE | 2020-02-23 12:21 | NUR ---
NURSE NOTES: Dr Smiley visited pt and is aware about covid negative, no new order to RN. Will continue to monitor.
--- NOTE | 2020-02-23 12:31 | General Progress Note ---
Subjective Constitutional: Reports: weakness Allergies: Coded Allergies: No Known Allergies (Unverified , 02/24/19) All Systems: reviewed and negative except above Subjective calm in bed Objective Last 24 Hour Vital Signs Date Time Temp Pulse Resp B/P (MAP) Pulse Ox O2 Delivery O2 Flow Rate FiO2 02/23/20 12:18 77 171/81 02/23/20 12:00 98.1 77 19 171/81 (111) 96 02/23/20 10:00 166/67 (100) 02/23/20 09:09 189/61 02/23/20 09:09 70 189/61 02/23/20 09:00 Room Air 02/23/20 08:00 96.7 70 19 189/61 (103) 98 02/23/20 07:24 58 02/23/20 04:00 98.4 60 18 145/65 (91) 97 02/23/20 04:00 64 02/23/20 00:00 59 02/23/20 00:00 98.6 59 18 140/61 (87) 94 02/22/20 21:00 Room Air 02/22/20 20:00 98.1 59 16 127/55 (79) 99 02/22/20 20:00 61 02/22/20 18:12 97.7 55 16 123/57 (79) 96 02/22/20 16:45 97.7 57 17 130/54 (79) 94 02/22/20 16:36 97.7 60 17 127/56 (79) 94 02/22/20 16:00 61 02/22/20 15:55 97.7 60 18 135/61 (85) 94 02/22/20 15:47 98.6 59 17 139/75 (96) 94 02/22/20 15:32 97.7 60 18 135/61 (85) 94 02/22/20 15:02 79 15 120/88 97 02/22/20 14:29 72 16 122/79 94 Intake and Output 02/22/20 02/23/20 19:00 07:00 Output Total 1000 ml Balance -1000 ml Output Urine Total 1000 ml Laboratory Tests 02/22/20 12:50: Prothrombin Time 11.8H, Prothromb Time International Ratio 1.1 02/23/20 05:30: White Blood Count 5.0, Red Blood Count 3.77L, Hemoglobin 12.1, Hematocrit 38.9, Mean Corpuscular Volume 103H, Mean Corpuscular Hemoglobin 32.2H, Mean Corpuscular Hemoglobin Concent 31.2L, Red Cell Distribution Width 12.3, Platelet Count 123L, Mean Platelet Volume 7.3, Neutrophils (%) (Auto) 56.7, Lymphocytes (%) (Auto) 22.9, Monocytes (%) (Auto) 15.0H, Eosinophils (%) (Auto) 1.8, Basophils (%) (Auto) 3.6H, Sodium Level 139, Potassium Level 3.8, Chloride Level 105, Carbon Dioxide Level 27, Anion Gap 7, Blood Urea Nitrogen 11, Creatinine 0.9, Estimat Glomerular Filtration Rate > 60, Glucose Level 70L, Calcium Level 8.4L Height (Feet): 5 Height (Inches): 5.00 Weight (Pounds): 205 General Appearance: lethargic, confused EENT: normal ENT inspection Neck: non-tender Cardiovascular: normal peripheral pulses, normal rate, regular rhythm Respiratory/Chest: chest wall non-tender, lungs clear, normal breath sounds Abdomen: normal bowel sounds, non tender, soft Extremities: normal inspection Edema: no edema noted Arm (L), no edema noted Arm (R), no edema noted Leg (L), no edema noted Leg (R), no edema noted Pedal (L), no edema noted Pedal (R), no edema noted Generalized Neurologic: motor weakness Skin: normal pigmentation, warm/dry Assessment/Plan Problem List: (1) Seizure ICD Codes: R56.9 - Unspecified convulsions SNOMED: 78391102 (2) Tremor ICD Codes: R25.1 - Tremor, unspecified SNOMED: 39317953 (3) Malnutrition ICD Codes: E46 - Unspecified protein-calorie malnutrition SNOMED: 90562550 (4) Anemia ICD Codes: D64.9 - Anemia, unspecified SNOMED: 569681868 (5) Elevated troponin ICD Codes: R77.8 - Other specified abnormalities of plasma proteins SNOMED: 271162575, 243195811, 818474471 (6) Gammopathy ICD Codes: D47.2 - Monoclonal gammopathy SNOMED: 355468320 (7) Schizophrenia ICD Codes: F20.9 - Schizophrenia, unspecified SNOMED: 76482655 (8) Generalized weakness ICD Codes: R53.1 - Weakness SNOMED: 37041454 Status: unchanged Assessment/Plan: bp seizure pain control cardio heme f/u dc to Partha Montenegro DO Feb 23, 2020 12:31
--- NOTE | 2020-02-23 14:13 | NUR ---
*-*DISCHARGE PLANNED*-* PATIENT HAS BEEN ACCEPTED AND WILL BE DISCHARGED TO: [facility] P: [phone] FOR NURSE TO NURSE REPORT ROOM# 405 [facility] TRANSPORTATION SET UP FOR 3:30PM S/W BEL[place] [id number]. PLACED A CALL TO PUBLIC GUARDIAN, JOSE M BALTAZAR, WHO IS IN AGREEMENT WITH DISCHARGE PLAN.
[2020-02-23] MEDS ORDERED: Docusate 100mg cap ORAL SCH (15:08)
--- NOTE | 2020-02-23 16:45 | NUR ---
NURSE NOTES: pt has ED/C order, all discharge assessments and instructions done, pt is stable, V/S stable, no stress noted. all belongings are with pt. Dr Smiley ordered to discharge pt with [place] and iv access, noted and carried out. Report given to Nadeem Camara, endorsed plan of care. pt has large BM now. pt has 2 open wound on sacral area and redness under breast folds, took pictures and uploaded. all paper works are with ambulance personnel. public guardians Trina Collins is aware about D/C. Pt left hospital with ambulance personnel.
--- NOTE | 2020-02-23 23:16 | Psychiatric Progress Note ---
Psychiatry Progress Note Psychiatry Progress Note Subjective the pt is the same complaint with meds Neurological/Psychiatric: Reports: anxiety, depressed, emotional problems; Denies: no symptoms, headache, numbness, paresthesia, pre-existing deficit, seiz ure, tingling, tremors, weakness, other Allergies: Coded Allergies: No Known Allergies (Unverified , 02/24/19) Objective Data Height (Feet): 5 Height (Inches): 5.00 Weight (Pounds): 205 General Appearance: lethargic, confused Additional Comments: alert, oriented times self, place. Mood is anxious. Affect is blunted, congruent with mood. Thought process is concrete. Thought content, no suicidal or homicidal ideation. Cognition is intact. Insight and judgment is fair. Assessment/Plan [place]: PLAN: 1. Continue the current psychotropic medication. 2. Decrease the risperidone to 6 mg at bedtime. 3. Haldol IM as needed. 4. Provide the patient with reality orientation. Status: unchanged Status Narrative PLAN: 1. Continue the current psychotropic medication. 2. Decrease the risperidone to 6 mg at bedtime. 3. Haldol IM as needed. 4. Provide the patient with reality orientation. Assessment/Plan: PLAN: 1. Continue the current psychotropic medication. 2. Decrease the risperidone to 6 mg at bedtime. 3. Haldol IM as needed. 4. Provide the patient with reality orientation. Yonis Escalante MD Feb 23, 2020 23:16
--- NOTE | 2020-02-24 04:07 | Cardiology Report ---
APPROVED REPORT EKG Measurement Heart [id number] CT [id number] <Conclusion> Sinus bradycardia Otherwise normal ECG
--- NOTE | 2020-02-24 04:07 | Cardiology Report ---
APPROVED REPORT EXAM: Two-dimensional and M-mode echocardiogram with Doppler and color Doppler. INDICATION Chest Pain M-Mode DIMENSIONS IVSd0.8 (0.7-1.1cm)Left Atrium (MM)2.8 (1.6-4.0cm) LVDd4.3 (3.5-5.6cm)Aortic Root3.0 (2.0-3.7cm) PWd0.8 (0.7-1.1cm)Aortic Cusp Exc.2.0 (1.5-2.0cm) IVSs1.2 cmEPSS0.5 (>1.0cm) LVDs3.0 (2.5-4.0cm) PWs1.3 cm <Conclusion> Technically difficult study with poor endocardial and valvular definition. Study quality precludes accurate assessment of regional wall motion. Grossly normal left ventricular chamber size, systolic function and wall motion to the extent visulaized Left ventricular ejection fraction estimated to be 65-70 %. No evidence of left ventricular hypertrophy. No evidence of pericardial effusion. All other cardiac chamber sizes are within normal limits. Mild focal aortic valve sclerosis with adequate cusp excursion. Mildly thickened mitral valve leaflets with normal excursion. Heavy mitral annulus calcification. Tricuspid and mitral and Pulmonic valve not well visualized. IVC dilated at 2.5 cm with poor physiological collapse suggeistive of increased RA pressure 15-20. A color flow and spectral Doppler study was performed and revealed: No aortic regurgitation. Trace mitral regurgitation. Mitral diastolic velocities suggest mild left ventricular diastolic dysfunction (Grade I). Trace tricuspid regurgitation unalbe to estimate pulmonary artery systolic pressure No pulmonic regurgitation present.
--- NOTE | 2020-02-25 12:15 | Discharge Summary ---
Discharge Summary Discharge Summary _ DATE OF ADMISSION: 02/18/2020 DATE OF DISCHARGE: 02/23/2020 DISCHARGED BY: Dr. Smiley REASON FOR ADMISSION: 54 years old female with past medical history of seizure disorder, anemia, atrial fibrillation, encephalopathy, resident of [facility], [facility], with prior history of COVID-19 infection, was sent for evaluation and possible bone marrow biopsy. Laboratory work-up was apparently concerning for myeloma and monoclonal gammopathy. Upon evaluation vital signs were stable Laboratory work-up revealed no leukocytosis, stable hemoglobin, hematocrit and platelet count. Troponin elevated 0.121. Telemetry showed sinus rhythm, no acute ischemic changes. Stable electrolytes, renal parameters and LFT. Albumin 2.8. Patient admitted to telemetry floor for further management. CONSULTANTS: deputy director of public works Dr. Miller fisher purse seine/oncologist Dr. Doll psychiatrist [facility] COURSE: Patient admitted to medical surgical floor. Ornamental Brick Installer followed for elevated troponin. Serial troponin were monitored , all remained low and flat , all around 0.12. EKG was nonischemic . Echocardiogram revealed preserved ejection fraction. Patient was on antiplatelet therapy with aspirin, beta blockage and statin. Stress test was negative. Patient denied any chest pain. Pulse oximetry stable on room air. Blood pressure was managed with beta-clover and calcium channel clover. Seizure precaution maintained. Keppra continued. Patient was counseled on compliance with medication regimen. No evidence of seizure activity while in the hospital. According to oncologist, t patient had monoclonal gammopathy. IgG 2721. Patient subsequently undergone CT-guided bone marrow biopsy.. Pathology revealed no diagnostic immunophenotyping abnormalities. Serum protein electrophoresis revealed no abnormal protein bands , Hemoglobin and hematocrit were closely monitored and remained stable ; prior to discharge hemoglobin 12.1 , hematocrit 28.9. Noted slightly low platelet count ; prior to discharge 123. Psychiatrist followed . Current psychotropic medication were continued. Risperidone dose was decreased. Patient was provided with reality orientation. Patient was working with physical therapist. Fall precaution maintained. Recommended transfer for further acute rehabilitation facility. Transfer was arranged to acute rehabilitation unit at [facility]. Patient was stable for transfer. FINAL DIAGNOSES: Monoclonal gammopathy Elevated troponin Hypertension Seizure disorder Anemia of chronic disease Malnutrition Schizophrenia History of Covid infection Thrombocytopenia DISCHARGE MEDICATIONS: See Medication Reconciliation list. DISCHARGE INSTRUCTIONS: Patient was discharged to [facility] to acute rehabilitation unit for further management. I have been assigned to dictate discharge summary for this account. I was not involved in the patient's management. Latha Ann NP Feb 25, 2020 12:15
== END 2020-02-23 16:53 | disposition short-term general hospital (02) | DRG 815 ==
LOC: EDBD 17:58 → EMR 18:35 → 3E 18:48 → EDBEDREQ 20:59 → 2E 02-19 12:15
PROC: 07DR3ZX Extraction of Iliac Bone Marrow, Percutaneous Approach, Diagnostic (ICD-10-PCS; principal; 2020-02-22)
DX: D47.2 Monoclonal gammopathy (principal); C90.00 Multiple myeloma not having achieved remission; E46 Unspecified protein-calorie malnutrition; F20.9 Schizophrenia, unspecified; Z68.32 Body mass index [BMI] 32.0-32.9, adult; D69.6 Thrombocytopenia, unspecified; F41.9 Anxiety disorder, unspecified; Z86.19 Personal history of other infectious and parasitic diseases; K21.9 Gastro-esophageal reflux disease without esophagitis; D63.8 Anemia in other chronic diseases classified elsewhere; I10 Essential (primary) hypertension; R56.9 Unspecified convulsions; R25.1 Tremor, unspecified; R74.8 Abnormal levels of other serum enzymes
CPT/HCPCS: 36415; 77012; 78452; 80048; 80053; 80164; 82784; 83690; 83880; 84165; 84484; 85025; 85610; 85730; 86850; 86900; 86901; 93005; 93017; 93306; 96374; 99285; J2785; J7030; U0002